=== PATIENT | female | born 1950 | race Caucasian/White ===

== ENCOUNTER 2018-02-09 23:57 | Observation (INO) | payer OTHER ==
[2018-02-10] MEDS ORDERED: PANTOPRAZOLE 40 MG INJ ONE (00:19)
[2018-02-10] MEDS ORDERED: NA CHLORIDE 0.9% 1,000 ML ONE (00:19)
[2018-02-10 00:36] LABS: Absolute Lymphocytes (CBC) 2.4 K/uL (0.7-4.9); Absolute Monocytes 0.7 K/uL (0.1-1.3); Absolute Neutrophil 5.7 K/uL (1.8-8.0); Basophils % 0.4 % (0-1.3); Eosinophils % 2.6 % (0-4.4); Hematocrit 42.8 % (36.0-45.0); Lymphocytes % 26.2 % (15.3-44.8); MCH 29.7 pg (27.0-35.0); MCV 86.4 fL (80-100); MPV 9.4 fL (7.6-11.3); Monocytes % 7.6 % (3.3-12.3); RBC Red Blood Cell Count 4.96 M/uL (3.86-4.86)
[2018-02-10] MEDS ORDERED: FENTANYL CITR 100 MCG/2 ML ONE ×2 (00:36→11:46)
[2018-02-10] MEDS ORDERED: ONDANSETRON 4 MG/2 ML VIAL ONE (00:36)
[2018-02-10] MEDS ORDERED: NA CHLORIDE 0.9% 500 ML ONE (00:36)
[2018-02-10 00:50] LABS: ALT/SGPT 64 U/L (12-78); AST/SGOT 53 U/L (15-37); Albumin 3.8 g/dL (3.4-5.0); Alkaline Phosphatase 81 U/L (45-117); BUN Blood Urea Nitrogen 16 mg/dL (7-18); Bicarbonate 23 mmol/L (21-32); Bilirubin Direct 0.3 mg/dL (0-0.2); Bilirubin Total 1.2 mg/dL (0.2-1.0); Glucose Level 160 mg/dL (74-106); Lipase 127 U/L (73-393); NT PRO-BNP 34 pg/mL (<125); Potassium 3.6 mmol/L (3.5-5.1); Protein, Total 7.6 g/dL (6.4-8.2); Protime INR 0.99; Sodium Level 140 mmol/L (136-145); Troponin (Emerg Dept Use Only) < 0.02 ng/mL (0.0-0.045)
[2018-02-10] MEDS ORDERED: Levofloxacin500mg IV 500 MG/100 ML BAG IV ONE (01:08)
--- NOTE | 2018-02-10 02:12 | EDPHYS ---
Physician Documentation [facility] Name: Vaishnavi Jose Age: 67 yrs Sex: Female : 1950 Arrival Date: 02/09/2018 Time: 23:58 Bed 16 Private MD: ED Physician Brett Rolle HPI: 02/10 00:27 This 67 yrs old Female presents to ER via Ambulatory with complaints of mami Epigastric Pain. 00:27 The patient presents with abdominal pain in the epigastric area, in the upper abdomen, mami abdominal distention in the epigastric area, in the upper abdomen. Onset: The symptoms/episode began/occurred 12 hour(s) ago. The symptoms radiate to Associated signs and symptoms: Pertinent positives: nausea and vomiting. The symptoms are described as constant, crampy, sharp. Modifying factors: The symptoms are alleviated by nothing, the symptoms are aggravated by breathing deeply, movement, pressure, touching the area, vomiting, walking. Severity of pain: At its worst the pain was moderate severe in the emergency department the pain is unchanged. The patient has not experienced similar symptoms in the past. Historical: - Allergies: 00:14 Codeine; bb 00:14 Latex, Natural Rubber; bb 00:14 Keflex; bb - Home Meds: 00:14 thyroid medication [Active]; Prevacid Oral [Active]; allergy medication [Active]; bb - PMHx: 00:14 GERD; bb - PSHx: 00:14 Thyroidectomy; neck surgery; bb - Immunization history:: Adult Immunizations up to date. - Social history:: Smoking status: Patient/guardian denies using tobacco, Patient uses alcohol, occasionally. Patient/guardian denies using street drugs. - Ebola Screening: : No symptoms or risks identified at this time. - Family history:: not pertinent. ROS: 00:27 Constitutional: Negative for fever, chills, and weight loss, Eyes: Negative for injury, mami pain, redness, and discharge, ENT: Negative for injury, pain, and discharge, Neck: Negative for injury, pain, and swelling, Cardiovascular: Negative for chest pain, palpitations, and edema, Respiratory: Negative for shortness of breath, cough, wheezing, and pleuritic chest pain, Back: Negative for injury and pain, : Negative for injury, bleeding, discharge, and swelling, MS/Extremity: Negative for injury and deformity, Skin: Negative for injury, rash, and discoloration, Neuro: Negative for headache, weakness, numbness, tingling, and seizure, Psych: Negative for depression, anxiety, suicide ideation, homicidal ideation, and hallucinations, Allergy/Immunology: Negative for hives, rash, and allergies, Endocrine: Negative for neck swelling, polydipsia, polyuria, polyphagia, and marked weight changes, Hematologic/Lymphatic: Negative for swollen nodes, abnormal bleeding, and unusual bruising. 00:27 Abdomen/GI: Positive for abdominal pain, nausea and vomiting, of the epigastric area, right upper quadrant and left upper quadrant. Exam: 00:27 Constitutional: This is a well developed, well nourished patient who is awake, alert, mami and in no acute distress. Head/Face: Normocephalic, atraumatic. Eyes: Pupils equal round and reactive to light, extra-ocular motions intact. Lids and lashes normal. Conjunctiva and sclera are non-icteric and not injected. Cornea within normal limits. Periorbital areas with no swelling, redness, or edema. ENT: Nares patent. No nasal discharge, no septal abnormalities noted. Tympanic membranes are normal and external auditory canals are clear. Oropharynx with no redness, swelling, or masses, exudates, or evidence of obstruction, uvula midline. Mucous membranes moist. Neck: Trachea midline, no thyromegaly or masses palpated, and no cervical lymphadenopathy. Supple, full range of motion without nuchal rigidity, or vertebral point tenderness. No Meningismus. Chest/axilla: Normal chest wall appearance and motion. Nontender with no deformity. No lesions are appreciated. Cardiovascular: Regular rate and rhythm with a normal S1 and S2. No gallops, murmurs, or rubs. Normal PMI, no JVD. No pulse deficits. Respiratory: Lungs have equal breath sounds bilaterally, clear to auscultation and percussion. No rales, rhonchi or wheezes noted. No increased work of breathing, no retractions or nasal flaring. Back: No spinal tenderness. No costovertebral tenderness. Full range of motion. Female : Normal external genitalia. Skin: Warm, dry with normal turgor. Normal color with no rashes, no lesions, and no evidence of cellulitis. MS/ Extremity: Pulses equal, no cyanosis. Neurovascular intact. Full, normal range of motion. Neuro: Awake and alert, GCS 15, oriented to person, place, time, and situation. Cranial nerves II-XII grossly intact. Motor strength 5/5 in all extremities. Sensory grossly intact. Cerebellar exam normal. Normal gait. Psych: Awake, alert, with orientation to person, place and time. Behavior, mood, and affect are within normal limits. 00:27 Abdomen/GI: Inspection: abdomen appears normal, Bowel sounds: normal, Palpation: moderate abdominal tenderness, in the epigastric area, right upper quadrant and left upper quadrant, Liver: no appreciated palpable abnormalities, Hernia: not appreciated. Vital Signs: 00:14 BP 146 / 71; Pulse 104; Resp 20 S; Temp 98.1(O); Pulse Ox 97% on R/A; Weight 75.3 kg bb (R); Height 5 ft. 2 in. (157.48 cm) (R); Pain 8/10; 00:34 BP 164 / 79; Pulse 101; Resp 20; Pulse Ox 96% on R/A; tl2 01:20 BP 152 / 81; Pulse 103; Resp 20; Pulse Ox 98% on R/A; tl2 02:45 BP 149 / 88; Pulse 107; Resp 20 S; Pulse Ox 97% on R/A; cc3 03:00 BP 149 / 72; Pulse 110; Resp 19 S; Pulse Ox 96% on R/A; Pain 0/10; cc3 04:30 BP 144 / 71; Pulse 114; Resp 21 S; Temp 98.5(O); Pulse Ox 97% on R/A; cc3 05:15 BP 144 / 62; Pulse 113; Resp 20 S; Pulse Ox 96% on R/A; cc3 07:20 BP 145 / 65; Pulse 110; Resp 18 S; Temp 98.4(O); Pulse Ox 96% on R/A; Pain 0/10; aa5 00:14 Body Mass Index 30.36 (75.30 kg, 157.48 cm) MDM: 00:04 Patient medically screened. [facility] 00:29 Data reviewed: vital signs, nurses notes, lab test result(s), EKG, radiologic studies, [facility] CT scan, plain films. 02/10 00:05 Order name: Basic Metabolic Panel; Complete Time: 00:57 [facility] 02/10 00:05 Order name: CBC with Diff; Complete Time: 00:57 [facility] 02/10 00:05 Order name: LFT's; Complete Time: 00:57 [facility] 02/10 00:05 Order name: Magnesium; Complete Time: 00:57 [facility] 02/10 00:05 Order name: NT PRO-BNP; Complete Time: 00:57 [facility] 02/10 00:05 Order name: PT-INR; Complete Time: 00:57 [facility] 02/10 00:05 Order name: Troponin (emerg Dept Use Only); Complete Time: 00:57 [facility] 02/10 00:05 Order name: XRAY Chest (1 view) [facility] 02/10 00:05 Order name: Lipase; Complete Time: 00:57 [facility] 02/10 00:05 Order name: Urine Culture [facility] 02/10 00:26 Order name: CT Abd/Pelvis - W/Contrast [facility] 02/10 00:59 Order name: Troponin (emerg Dept Use Only); Complete Time: 02:37 [facility] 02/10 02:15 Order name: Abdomen Exam Limited EDSD 02/10 02:38 Order name: Urine Dipstick--Ancillary (enter results) 02/10 00:05 Order name: EKG; Complete Time: 00:07 [facility] 02/10 00:05 Order name: Cardiac monitoring; Complete Time: 00:14 [facility] 02/10 00:05 Order name: EKG - Nurse/Tech; Complete Time: 00:14 [facility] 02/10 00:05 Order name: IV Saline Lock; Complete Time: 00:15 [facility] 02/10 00:05 Order name: Labs collected and sent; Complete Time: 00:15 [facility] 02/10 00:05 Order name: O2 Per Protocol; Complete Time: 00:15 [facility] 02/10 00:05 Order name: O2 Sat Monitoring; Complete Time: 00:15 [facility] 02/10 00:05 Order name: Urine Dipstick-Ancillary (obtain specimen); Complete Time: 02:38 [facility] 02/10 00:59 Order name: EKG; Complete Time: 01:00 [facility] 02/10 00:59 Order name: EKG - Nurse/Tech; Complete Time: 01:42 [facility] 02/10 00:59 Order name: Repeat Cardiac Enzymes at: 130am; Complete Time: 01:42 [facility] Administered Medications: 00:15 Drug: NS 0.9% 1000 ml Route: IV; Rate: 125 ml/hr; Site: right antecubital; cc3 03:00 Follow up: Response: No adverse reaction; IV Status: Infusion continued upon admission cc3 00:16 Drug: ProTONIX 40 mg Route: IVP; Site: right antecubital; cc3 01:00 Follow up: Response: No adverse reaction tl2 00:34 Drug: fentaNYL (PF) 25 mcg Route: IVP; Site: right antecubital; tl2 00:50 Follow up: Response: No adverse reaction; Pain is unchanged, physician notified tl2 00:34 Drug: Zofran 4 mg Route: IVP; Site: right antecubital; tl2 00:50 Follow up: Response: No adverse reaction; Nausea is decreased tl2 00:34 Drug: NS 0.9% 500 ml Route: IV; Rate: bolus; Site: right antecubital; tl2 01:43 Follow up: IV Status: Completed infusion; IV Intake: 500ml tl2 00:58 Drug: fentaNYL (PF) 25 mcg Route: IVP; Site: right antecubital; tl2 01:20 Follow up: Response: No adverse reaction; Pain is decreased tl2 01:05 Drug: levofloxacin 500 mg Volume: 100 ml; Route: IVPB; Infused Over: 60 mins; Site: tl2 right antecubital; 02:10 Follow up: Response: No adverse reaction; IV Status: Completed infusion; IV Intake: cc3 100ml Disposition: 18 02:11 Hospitalization ordered by Wallace Belcher for Observation. Preliminary diagnosis are Abdominal tenderness, Cholelithiasis. - Bed requested for Telemetry/MedSurg (observation). - Status is Observation. aa5 - Condition is Fair. - Problem is new. - Symptoms have improved. UTI on Admission? No Signatures: Dispatcher [employer] Nayana Jacob RN RN kl Anderson, Corey, MD MD cha Ballard, Brenda, RN RN bb Calderon, Audri, RN RN aa5 Maida Leyva RN RN tl2 Sarai Bird cc3 Corrections: (The following items were deleted from the chart) 02:42 02:11 Hospitalization Ordered by Wallace Belcher MD for Observation. Preliminary kl diagnosis is Abdominal tenderness. Bed requested for Telemetry/MedSurg (observation). Status is Observation. Condition is Fair. Problem is new. Symptoms have improved. UTI on Admission? No. mami 02:47 02:42 02/10/2018 02:11 Hospitalization Ordered by Wallace Belcher MD for Observation. mami Preliminary diagnosis is Abdominal tenderness. Bed requested for [facility] ER HOLD. Status is Observation. Condition is Fair. Problem is new. Symptoms have improved. UTI on Admission? No. kl 05:57 02:47 02/10/2018 02:11 Hospitalization Ordered by Wallace Belcher MD for Observation. kl Preliminary diagnosis is Abdominal tenderness; Cholelithiasis. Bed requested for [facility] ER HOLD. Status is Observation. Condition is Fair. Problem is new. Symptoms have improved. UTI on Admission? No. mami 07:53 05:57 02/10/2018 02:11 Hospitalization Ordered by Wallace Belcher MD for Observation. aa5 Preliminary diagnosis is Abdominal tenderness; Cholelithiasis. Bed requested for Telemetry/MedSurg (observation). Status is Observation. Condition is Fair. Problem is new. Symptoms have improved. UTI on Admission? No. kl
--- NOTE | 2018-02-10 02:12 | ER ---
Nurse's Notes [facility] Name: Vaishnavi Jose Age: 67 yrs Sex: Female : 1950 Arrival Date: 02/09/2018 Time: 23:58 Bed 16 Private MD: Diagnosis: Abdominal tenderness;Cholelithiasis Presentation: 02/10 00:11 Presenting complaint: Patient states: she has been having epigastric pain throughout bb the day but pain is worse and now she is vomiting and c/o SOB. Transition of care: patient was not received from another setting of care. Onset of symptoms was February 10, 2018. Risk Assessment: Do you want to hurt yourself or someone else? Patient reports no desire to harm self or others. Initial Sepsis Screen: Does the patient meet any 2 criteria? No. Patient's initial sepsis screen is negative. Does the patient have a suspected source of infection? No. Patient's initial sepsis screen is negative. Care prior to arrival: None. 00:11 Method Of Arrival: Ambulatory bb 00:11 Acuity: CLEVE 3 bb Historical: - Allergies: 00:14 Codeine; bb 00:14 Latex, Natural Rubber; bb 00:14 Keflex; bb - Home Meds: 00:14 thyroid medication [Active]; Prevacid Oral [Active]; allergy medication [Active]; bb - PMHx: 00:14 GERD; bb - PSHx: 00:14 Thyroidectomy; neck surgery; bb - Immunization history:: Adult Immunizations up to date. - Social history:: Smoking status: Patient/guardian denies using tobacco, Patient uses alcohol, occasionally. Patient/guardian denies using street drugs. - Ebola Screening: : No symptoms or risks identified at this time. - Family history:: not pertinent. Screenin:16 Abuse screen: Denies threats or abuse. Nutritional screening: No deficits noted. tl2 Tuberculosis screening: No symptoms or risk factors identified. Fall Risk None identified. Assessment: 00:16 General: Appears in no apparent distress. uncomfortable, Behavior is calm, cooperative, tl2 appropriate for age. Pain: Complains of pain in epigastric area, right upper quadrant and left upper quadrant Pain does not radiate. Pain currently is 10 out of 10 on a pain scale. Quality of pain is described as sharp. Neuro: Level of Consciousness is awake, alert, obeys commands, Oriented to person, place, time, situation. Cardiovascular: Denies chest pain. Respiratory: Airway is patent Respiratory effort is even, unlabored, Respiratory pattern is regular, symmetrical. GI: Abdomen is non-distended, Reports nausea, vomiting. : No signs and/or symptoms were reported regarding the genitourinary system. Derm: Skin is pink, warm \T\ dry. 01:20 Reassessment: Patient appears in no apparent distress at this time. Patient and/or tl2 family updated on plan of care and expected duration. Pain level reassessed. Patient is alert, oriented x 3, equal unlabored respirations, skin warm/dry/pink. Notified CT that pt finished contrast at 0100 Patient states feeling better. 01:40 Reassessment: Patient appears in no apparent distress at this time. Patient and/or cc3 family updated on plan of care and expected duration. Pain level reassessed. Patient is alert, oriented x 3, equal unlabored respirations, skin warm/dry/pink. Received patient from ANAI Bey as a case of epigastric pain, with IV cannula gauge 20 at the right ACV with ongoing IVF of a liter of NS at 125 mL/hr and intravenous Levofloxacin 500 mg over an hour infusing well. 02:30 Reassessment: Patient appears in no apparent distress at this time. Patient and/or cc3 family updated on plan of care and expected duration. Pain level reassessed. Patient is alert, oriented x 3, equal unlabored respirations, skin warm/dry/pink. Patient came back from CT scan department and CT abdomen/pelvis with contrast done as ordered, waiting for result. Called ultrasound department at extension [phone] but nobody answered. Patient states feeling better. 03:00 Reassessment: Patient appears in no apparent distress at this time. Patient and/or cc3 family updated on plan of care and expected duration. Pain level reassessed. Patient is alert, oriented x 3, equal unlabored respirations, skin warm/dry/pink. Patient is for admission, waiting for admission orders. Patient's placed on ER HOLD. Documentation continued in [employer] Patient denies pain at this time. Patient states feeling better. 06:25 Reassessment: Patient appears in no apparent distress at this time. Patient and/or cc3 family updated on plan of care and expected duration. Pain level reassessed. Patient is alert, oriented x 3, equal unlabored respirations, skin warm/dry/pink. Room available at 210, called med-surg villalba at [phone] but as per Paloma to give report after handover, charge nurse Rohini informed. 07:15 Reassessment: Patient and/or family updated on plan of care and expected duration. Pain aa5 level reassessed. Patient is alert, oriented x 3, equal unlabored respirations, skin warm/dry/pink. Patient denies pain at this time. 07:50 Reassessment: Patient is alert, oriented x 3, equal unlabored respirations, skin aa5 warm/dry/pink. Vital Signs: 00:14 BP 146 / 71; Pulse 104; Resp 20 S; Temp 98.1(O); Pulse Ox 97% on R/A; Weight 75.3 kg bb (R); Height 5 ft. 2 in. (157.48 cm) (R); Pain 8/10; 00:34 BP 164 / 79; Pulse 101; Resp 20; Pulse Ox 96% on R/A; tl2 01:20 BP 152 / 81; Pulse 103; Resp 20; Pulse Ox 98% on R/A; tl2 02:45 BP 149 / 88; Pulse 107; Resp 20 S; Pulse Ox 97% on R/A; cc3 03:00 BP 149 / 72; Pulse 110; Resp 19 S; Pulse Ox 96% on R/A; Pain 0/10; cc3 04:30 BP 144 / 71; Pulse 114; Resp 21 S; Temp 98.5(O); Pulse Ox 97% on R/A; cc3 05:15 BP 144 / 62; Pulse 113; Resp 20 S; Pulse Ox 96% on R/A; cc3 07:20 BP 145 / 65; Pulse 110; Resp 18 S; Temp 98.4(O); Pulse Ox 96% on R/A; Pain 0/10; aa5 00:14 Body Mass Index 30.36 (75.30 kg, 157.48 cm) ED Course: 02/09 23:58 Patient arrived in ED. mr 02/10 00:04 Brett Rolle MD is Attending Physician. [facility] 00:12 Triage completed. 00:14 Patient placed in an exam room, on a stretcher, on pulse oximetry. EKG completed in bb triage. Results shown to MD. 00:15 Inserted saline lock: 20 gauge in right antecubital area, using aseptic technique. tl2 Blood collected. 00:16 Initial lab(s) drawn, by me, sent to lab. EKG done. tl2 00:16 Patient has correct armband on for positive identification. Placed in gown. Bed in low tl2 position. Call light in reach. Side rails up X 1. 00:27 Maida Leyva RN is Primary Nurse. tl2 00:51 X-ray completed. Portable x-ray completed in exam room. Patient tolerated procedure kw well. 00:54 XRAY Chest (1 view) In Process Unspecified. EDMS 01:[address] via stretcher. co 02:10 Wallace Belcher MD is Hospitalizing Provider. [facility] 02:17 CT Abd/Pelvis - W/Contrast In Process Unspecified. EDMS 02:18 CT completed. Patient tolerated procedure well. Patient moved back from CT. co 03:00 No provider procedures requiring assistance completed. Patient admitted, IV remains in cc3 place. 07:05 Report received from ANAI Moon. aa5 07:07 Report given to ANAI Thompson. cc3 Administered Medications: 00:15 Drug: NS 0.9% 1000 ml Route: IV; Rate: 125 ml/hr; Site: right antecubital; cc3 03:00 Follow up: Response: No adverse reaction; IV Status: Infusion continued upon admission cc3 00:16 Drug: ProTONIX 40 mg Route: IVP; Site: right antecubital; cc3 01:00 Follow up: Response: No adverse reaction tl2 00:34 Drug: fentaNYL (PF) 25 mcg Route: IVP; Site: right antecubital; tl2 00:50 Follow up: Response: No adverse reaction; Pain is unchanged, physician notified tl2 00:34 Drug: Zofran 4 mg Route: IVP; Site: right antecubital; tl2 00:50 Follow up: Response: No adverse reaction; Nausea is decreased tl2 00:34 Drug: NS 0.9% 500 ml Route: IV; Rate: bolus; Site: right antecubital; tl2 01:43 Follow up: IV Status: Completed infusion; IV Intake: 500ml tl2 00:58 Drug: fentaNYL (PF) 25 mcg Route: IVP; Site: right antecubital; tl2 01:20 Follow up: Response: No adverse reaction; Pain is decreased tl2 01:05 Drug: levofloxacin 500 mg Volume: 100 ml; Route: IVPB; Infused Over: 60 mins; Site: tl2 right antecubital; 02:10 Follow up: Response: No adverse reaction; IV Status: Completed infusion; IV Intake: cc3 100ml Intake: 01:43 IV: 500ml; Total: 500ml. tl2 02:10 IV: 100ml; Total: 600ml. cc3 Outcome: 02:11 Decision to Hospitalize by Provider. [facility] 03:00 Condition: stable cc3 03:00 Instructed on the need for admit. 07:50 Admitted to Med/surg accompanied by tech, via wheelchair, room 210, with chart, Report aa5 called to ANAI Hooper. Pt was taken to [facility] and will be transported to Room 210 after it is completed. 07:50 Condition: stable 07:50 Instructed on the need for admit, Demonstrated understanding of instructions. 07:53 Patient left the ED. aa5 Signatures: Dispatcher [employer] EDMS Brett Rolle MD MD cha Rivera, Mary mr Rohini Mayes, RN RN bb Donna Mcrae RN RN aa5 Danuta Root Taylor, RN RN tl2 Gian Lee Charlene cc3 Corrections: (The following items were deleted from the chart) 03:13 01:40 Reassessment: Patient appears in no apparent distress at this time. Patient cc3 and/or family updated on plan of care and expected duration. Pain level reassessed. Patient is alert, oriented x 3, equal unlabored respirations, skin warm/dry/pink. Received patient from ANAI Bey as a case of epigastric pain, with IV cannula gauge 20 at the right ACV with ongoing IVF of NS at 125 mL/hr and cc3 03:18 02:30 Reassessment: Patient appears in no apparent distress at this time. Patient cc3 and/or family updated on plan of care and expected duration. Pain level reassessed. Patient is alert, oriented x 3, equal unlabored respirations, skin warm/dry/pink. Patient came back from CT scan department and CT abdomen/pelvis with contrast done as ordered, waiting for result. cc3 04:55 02:30 Reassessment: Patient appears in no apparent distress at this time. Patient cc3 and/or family updated on plan of care and expected duration. Pain level reassessed. Patient is alert, oriented x 3, equal unlabored respirations, skin warm/dry/pink. Patient came back from CT scan department and CT abdomen/pelvis with contrast done as ordered, waiting for result. Patient states feeling better. cc3
[2018-02-10 03:11] LABS: Urine Blood NEGATIVE (NEG); Urine Glucose NEGATIVE (NEG); Urine Protein NEGATIVE (NEG); Urine Specific Gravity 1.015 (1.005-1.030)
[2018-02-10 04:09] VITALS: BMI 30.3
--- NOTE | 2018-02-10 04:49 | P.HP ---
Certification for Inpatient Patient admitted to: Observation With expected LOS: <2 Midnights Practitioner: I am a practitioner with admitting privileges, knowledge of patient current condition, hospital course, and medical plan of care. Services: Services provided to patient in accordance with Admission requirements found in Title 42 Section 412.3 of the Code of Federal Regulations Patient History Date of Service: 02/10/18 Reason for admission: Abdominal pain History of Present Illness: Ms Jose is a 67-year-old woman with history of thyroid cancer, status post thyroidectomy, GERD, who start with epigastric abdominal pain since noon yesterday. Her pain was significantly intense about 10/10, radiating to right upper quadrant, associated with nausea and vomiting. The pain is described as constant colicky like. She denied diarrhea, fever but has had chills. She had these kind of symptoms in the past but resolved faster by itself. Lab work remarkable for normal WBC count, bilirubin 1.2, AST mildly elevated. CT abdomen and pelvis consistent with cholelithiasis. Allergies cephalexin monohydrate [From Keflex] Allergy (Intermediate, Verified 12/03/11 19 :36) UNKNOWN hydrocodone [Hydrocodone] Allergy (Intermediate, Verified 12/03/11 19:36) Itching Home medications list reviewed: Yes - Past Medical/Surgical History Has patient received pneumonia vaccine in the past: No Diabetic: No -: gerd -: history of thyroid cancer -: thyroidectomy -: thyroidectomy - Family History Family History: Reviewed- Non-Contributory - Social History Smoking Status: Former smoker Alcohol use: No CD- Drugs: No Caffeine use: No Place of Residence: Home Review of Systems 10-point ROS is otherwise unremarkable Physical Examination - Vital Signs Temperature: 98.5 F Blood Pressure: 139/60 Pulse: 117 Respirations: 20 Pulse Ox (%): 97 - Physical Exam General: Alert, In no apparent distress HEENT: Atraumatic, PERRLA, Mucous membr. moist/pink, EOMI, Sclerae nonicteric Neck: Supple, 2+ carotid pulse no bruit, No LAD, Without JVD or thyroid abnormality Respiratory: Clear to auscultation bilaterally, Normal air movement Cardiovascular: Regular rate/rhythm, Normal S1 S2 Gastrointestinal: Normal bowel sounds, Tenderness (Epigastric area) Musculoskeletal: No tenderness Integumentary: No rashes Neurological: Normal speech, Normal strength at 5/5 x4 extr, Normal tone, Normal affect Lymphatics: No axilla or inguinal lymphadenopathy - Studies Laboratory Data (last 24 hrs) 02/10/18 00:13: PT 11.7, INR 0.99 02/10/18 00:13: WBC 9.0, Hgb 14.7, Hct 42.8, Plt Count 238 02/10/18 00:13: Sodium 140, Potassium 3.6, BUN 16, Creatinine 0.90, Glucose 160 H, Magnesium 2.0, Total Bilirubin 1.2 H, AST 53 H, ALT 64, Alkaline Phosphatase 81, Lipase 127 Assessment and Plan - Problems (Diagnosis) (1) Abdominal pain Current Visit: Yes Status: Acute Qualifiers: Abdominal location: epigastric Qualified Code(s): R10.13 - Epigastric pain (2) Cholelithiasis Current Visit: Yes Status: Acute Qualifiers: Cholelithiasis location: gallbladder Cholecystitis presence: without cholecystitis Biliary obstruction: without biliary obstruction Qualified Code(s): K80.20 - Calculus of gallbladder without cholecystitis without obstruction (3) History of thyroid cancer Current Visit: Yes Status: Acute - Plan The patient will be admitted under observation due to symptomatic cholelithiasis. There is a pending abdominal ultrasound. Will order symptomatic medication for pain and N/V. Will consult Surgery team for evaluation and recommendation. - Advance Directives Does patient have a Living Will: No Does patient have a Durable POA for Healthcare: No - Code Status/Comfort Care Code Status Assessed: Yes Code Status: Full Code
[2018-02-10] MEDS ORDERED: KETOROLAC 30 MG/ML INJ IV PRN (05:12)
[2018-02-10] MEDS: NA CHLORIDE 0.9% 1,000 ML IV SCH ×2 (05:12→15:12)
[2018-02-10] MEDS ORDERED: SODIUM CHLORIDE 0.9% 10ML INJ IV PRN (05:12)
[2018-02-10] MEDS ORDERED: ONDANSETRON 4 MG/2 ML VIAL IV PRN ×2 (05:12→13:41)
[2018-02-10] MEDS: PANTOPRAZOLE 40 MG INJ IVP SCH (06:00)
--- NOTE | 2018-02-10 06:49 | EKG ---
Test Date: 2018-02-10 Test Time: 00:09:10 Power Nut Runner Operator: MARY CARMEN MEASUREMENT RESULTS: Intervals: Rate: 100 TN: 162 QRSD: 76 QT: 334 QTc: 430 [place]: P: 66 TN: 162 QRS: -4 T: 64 INTERPRETIVE STATEMENTS: Normal sinus rhythm Septal infarct, age undetermined Abnormal ECG Compared to ECG 07/19/2000 09:27:00 Myocardial infarct finding now present Electronically Signed On 02-10-18 06:49:00 CDT by Brandon Larson
--- NOTE | 2018-02-10 08:40 | RAD REPORT ---
EXAM DESCRIPTION: CT - Abdomen Pelvis W Contrast - 02/10/2018 2:17 am CLINICAL HISTORY: Abdominal pain. Epigastric pain with vomiting COMPARISON: None. TECHNIQUE: Computed axial tomography of the abdomen and pelvis was obtained. 100 cc Isovue-300 is ad ministered intravenously. Oral contrast was given. All CT scans are performed using dose optimization technique as appropriate and may include automated exposure control or mA/KV adjustment according to patient size. FINDINGS: Fatty infiltration liver seen. Multiple gallstones are noted. The gallbladder wall is not thickened. Spleen, pancreas, adrenals and kidneys appear unremarkable. Small left renal cyst is noted. An adnexal mass is not seen. Diverticula stem from the colon without evidence diverticulitis Small umbilical hernia is present. Small hiatal hernia is noted. Contrast within the distal esophagus probably indicates GE reflux IMPRESSION: Cholelithiasis
--- NOTE | 2018-02-10 08:41 | RAD REPORT ---
EXAM DESCRIPTION: US - Abdomen Exam Limited - 02/10/2018 7:10 am CLINICAL HISTORY: Abdominal pain. COMPARISON: CT February 10, 2018 FINDINGS: Multiple gallstones are present. The gallbladder wall is upper limits normal thickness The biliary tree is normal caliber. IMPRESSION: Cholelithiasis
--- NOTE | 2018-02-10 08:47 | RAD REPORT ---
EXAM DESCRIPTION: Luis Enrique Single View02/10/2018 12:53 am CLINICAL HISTORY: Chest pain COMPARISON: none FINDINGS: The lungs appear clear of acute infiltrate. The heart is normal size IMPRESSION: No acute abnormalities displayed
--- NOTE | 2018-02-10 09:26 | RAD REPORT ---
EXAM DESCRIPTION: [id number]/19/2018 8:33 am CLINICAL HISTORY: Abdominal pain COMPARISON: February 09, 2018 cat scan TECHNIQUE: Magnetic resonance cholangiogram was performed. 3D mip reconstruction performed FINDINGS: Multiple gallstones are present. The gallbladder wall appears borderline thickened The biliary tree is normal caliber. A filling defect within biliary tree is not seen IMPRESSION: Cholelithiasis. Gallbladder wall appears borderline thickened which may indicate cholecy stitis A stone within the common bile duct is not seen
[2018-02-10] MEDS ORDERED: Ringers Lactate 1,000 ML IV ONE (10:47)
--- NOTE | 2018-02-10 11:31 | P.PN ---
Subjective Date of Service: 02/10/18 Primary Care Provider: None Chief Complaint: Abdominal pain Subjective: Other (No more pain identified. No nausea vomiting.) Physical Examination - Vital Signs Temperature: 98.5 F Blood Pressure: 135/60 Pulse: 108 Respirations: 17 Pulse Ox (%): 94 - Physical Exam General: Alert, In no apparent distress, Oriented x3, Cooperative HEENT: Atraumatic Neck: Supple Respiratory: Clear to auscultation bilaterally, Normal air movement Cardiovascular: Normal pulses, Regular rate/rhythm Gastrointestinal: Normal bowel sounds, Soft and benign, Non-distended, No tenderness, No masses, No rebound, No guarding Musculoskeletal: No erythema, No tenderness, No warmth Integumentary: No tenderness/swelling, No erythema, No warmth, No cyanosis Neurological: Normal speech, Normal strength at 5/5 x4 extr, Normal tone, Normal affect - Studies Laboratory Data (last 24 hrs) 02/10/18 00:13: PT 11.7, INR 0.99 02/10/18 00:13: WBC 9.0, Hgb 14.7, Hct 42.8, Plt Count 238 02/10/18 00:13: Sodium 140, Potassium 3.6, BUN 16, Creatinine 0.90, Glucose 160 H, Magnesium 2.0, Total Bilirubin 1.2 H, AST 53 H, ALT 64, Alkaline Phosphatase 81, Lipase 127 Medications List Reviewed: Yes Assessment & Plan Discharge Plan: Home Plan to discharge in: 24 Hours Physician Review Additional Text: Impression: Right upper quadrant abdominal pain secondary to acute cholecystitis with cholelithiasis. MRCP shows no stone in the bile duct. Elevation in liver function tests with hyperbilirubinemia secondary to acute cholecystitis. MRCP unremarkable for stone in the biliary duct History of thyroid cancer Obesity, BMI 30.4 Plan: Right upper quadrant abdominal pain secondary to acute cholecystitis with cholelithiasis. MRCP shows no stone in the bile duct: GI consulted. No need for a ERCP. Surgery consulted. Anticipate cholecystectomy today. Possible discharge later today or tomorrow. Will discuss further with surgery. Elevation in liver function tests with hyperbilirubinemia secondary to acute cholecystitis. MRCP unremarkable for stone in the biliary duct: No need for ERCP. Continue as above. History of thyroid cancer: Overall stable. Obesity, BMI 30.4: Will address lifestyle modification education. Time Spent Managing Pts Care (In Minutes): 55
[2018-02-10] MEDS ORDERED: CEFOXITIN SODIUM 1 GM/VIAL IVPB ONE (11:40)
[2018-02-10] MEDS ORDERED: PROPOFOL 200 MG/20 ML VIAL IV ONE (11:46)
[2018-02-10] MEDS ORDERED: MIDAZOLAM HCL 2 MG/2 ML INJ ONE (11:46)
[2018-02-10] MEDS ORDERED: LIDOCAINE 2% MPF 5 ML VIAL ONE (11:46)
[2018-02-10] MEDS ORDERED: ROCURONIUM 50 MG/5 ML VIAL IV ONE (11:47)
[2018-02-10] MEDS ORDERED: ONDANSETRON HCL 40 MG/20 ML VIAL ONE (11:47)
[2018-02-10] MEDS ORDERED: NS 0.9% VIAL 10 ML ONE (11:55)
[2018-02-10] MEDS ORDERED: CEFOXITIN/SWI 1gm 1 GM/10 ML SYR IV SCH (12:00)
--- NOTE | 2018-02-10 13:01 | P.OP ---
Preoperative diagnosis: Acute Cholecystitis and Cholelithiasis Postoperative diagnosis: same Primary procedure: Lap Abigail Anesthesia: gen Estimated blood loss: min Specimen: gb Findings: as above Complications: None Transferred to: Recovery Room Condition: Good
[2018-02-10] MEDS ORDERED: GLYCOPYRROLATE 0.2 MG/ML SYR ONE (13:02)
[2018-02-10] MEDS: MEPERIDINE HCL 50 MG/ML AMP ONE ×2 (13:32→13:40)
[2018-02-10] MEDS ORDERED: PROMETHAZINE 25 MG/ML VIAL ONE (13:40)
[2018-02-10] MEDS ORDERED: HYDROMORPHONE HCL 1 MG/ML INJ IV PRN ×2 (13:41)
[2018-02-10 14:31] VITALS: O2SAT 96
[2018-02-10] MEDS: HYDROCODONE/APAP 7.5/325 MG TAB PO PRN ×2 (15:58→21:20)
[2018-02-10] MEDS: CEFOXITIN/SWI 1gm 1 GM/10 ML SYR IVP SCH (17:45)
--- NOTE | 2018-02-10 18:22 | CON ---
Date of Consultation: 02/10/2018 Reason: Abdominal pain. History Of Present Illness: The patient is a 67-year-old female, who was admitted early this morning with epigastric abdominal pain since she had lunch yesterday, radiating to the right upper quadrant associated with nausea and vomiting. The pain is colicky in nature. She denies any diarrhea, consti pation, or blood in her stool. No dysuria or hematuria. No sore throat, runny nose, cough, headache s, or dizziness. No chest pain. No fever, but occasional chills. She had a similar symptoms 1 time in the past. Review of Systems: Otherwise unremarkable. Past Medical History: Significant for GERD, thyroid cancer. Past Surgical History: Thyroidectomy. Allergies: INCLUDE CEPHALEXIN AND HYDROCODONE. Social History: The patient used to smoke, does not. Family History: Noncontributory. Physical Examination: Vital Signs: Stable. She is afebrile. General: She is awake, alert, and oriented x3. Head and Neck: No evidence of icterus. Cranial nerves 2 through 12 grossly within normal limits. N o neck masses. No JVD. Throat clear. Neck is supple. Chest: Clear. Heart: S1, S2. Abdomen: Soft, nondistended. Positive bowel sounds. Positive right upper quadrant tenderness. No rebound, rigidity, or guarding. Extremities: Adequately perfused. Nontender. Neuro: Nonfocal. Laboratory Data: Shows a white count of 9000. There is no left shift. INR was normal. Chemistry s hows total bilirubin of 1.2, AST of 53, lipase of 127. She had an ultrasound of the abdomen and CAT scan of the abdomen and pelvis, which shows cholelithiasis, but normal biliary duct. The MRCP which was negative for stone in the duct and then the CAT scan, which just showed cholelithiasis. Assessment: Acute cholecystitis and cholelithiasis. Plan: Admit n.p.o., IV fluid, IV antibiotic. To the OR for laparoscopic cholecystectomy, possible o pen. The patient understands the risks, benefits, and alternatives and agrees to procedure. /MODL Voice ID: [id number] Report ID: [id number]
[2018-02-11] MEDS: CEFOXITIN/SWI 1gm 1 GM/10 ML SYR IVP SCH ×3 (00:13→11:21)
[2018-02-11] MEDS: NA CHLORIDE 0.9% 1,000 ML IV SCH (00:13)
--- NOTE | 2018-02-11 00:58 | OP ---
Date of Procedure: 02/10/2018 Surgeon: Brad Edgar MD Preoperative Diagnosis: Acute cholecystitis and cholelithiasis. Postoperative Diagnosis: Acute cholecystitis and cholelithiasis. Operative Procedure: Laparoscopic cholecystectomy. Estimated Blood Loss: Minimal. Specimen: Gallbladder. Findings: As above. Anesthesia: General. Complications: None. Disposition: The patient tolerated the procedure in stable condition and taken to Recovery in good g eneral condition. Procedure In Detail: The patient was brought to the OR and placed in the supine position. General a nesthesia was begun. The patient was prepped and draped in the usual sterile fashion. Marcaine 0.5% was infiltrated locally. A 15-blade was used to make a 1 cm infraumbilical midline incision. Subcu taneous tissue divided. The fascia was identified and divided. A #1 Vicryl stay suture was placed. Peritoneal cavity was entered with sharp and blunt dissection. A 12 mm trocar was placed into the p eritoneal cavity under direct vision. Pneumoperitoneum was established and then three 5-mm trocars w ere placed, 1 in the epigastrium just to the right of midline and 2 in the right subcostal region. L aparoscopy revealed a very distended inflamed gallbladder, which was aspirated of bile and then fundu s was retracted superiorly. There were some adhesions near the infundibulum which was taken down wit h sharp and blunt dissection. Bleeding controlled with cautery and then cystic duct and cystic arter y were clearly identified with blunt dissection. Clips were placed. Both structures were divided. Cautery was used to remove the gallbladder from the liver bed. Bleeding in the gallbladder controlle d with cautery and then gallbladder retrieved through the umbilicus via an EndoCatch bag. Right uppe r quadrant was irrigated. Effluent was clear. No evidence of bleeding or bile leakage appreciated. Minimal oozing noted on the liver bed. Surgicel was placed. No further bleeding noted. Subsequent ly, all trocars were removed under direct vision. Stay sutures were tied to each other to reapproxim ate the fascial defect. Subcutaneous wounds were irrigated. Bleeding was controlled with cautery. A 3-0 chromic was used to approximate the subcutaneous tissue and diamond were used to close the skin . Sterile dressing was applied. The patient was awakened and taken to recovery room in good general condition. /MODL Voice ID: [id number] Report ID: [id number]
[2018-02-11] MEDS: HYDROCODONE/APAP 7.5/325 MG TAB PO PRN ×2 (04:05→11:21)
--- NOTE | 2018-02-11 04:20 | EKG ---
Test Date: 2018-02-10 Test Time: 01:38:05 Assistant Womens Volleyball Coach: ELLIE MEASUREMENT RESULTS: Intervals: Rate: 103 NH: 170 QRSD: 80 QT: 340 QTc: 445 [place]: P: 52 NH: 170 QRS: -6 T: 57 INTERPRETIVE STATEMENTS: Sinus tachycardia Septal infarct, age undetermined Abnormal ECG Compared to ECG 02/10/2018 00:09:10 Sinus rhythm no longer present Myocardial infarct finding still present Electronically Signed On 02-11-18 04:17:32 CDT by Brandon Larson
[2018-02-11] MEDS: PANTOPRAZOLE 40 MG INJ IVP SCH (05:27)
[2018-02-11 06:23] LABS: Absolute Lymphocytes (CBC) 1.7 K/uL (0.7-4.9); Absolute Neutrophil 7.5 K/uL (1.8-8.0); Basophils % 0.4 % (0-1.3); Eosinophils % 0.8 % (0-4.4); Hematocrit 39.1 % (36.0-45.0); Lymphocytes % 16.9 % (15.3-44.8); MCH 30.4 pg (27.0-35.0); MPV 9.6 fL (7.6-11.3); Monocytes % 9.2 % (3.3-12.3); RBC Red Blood Cell Count 4.49 M/uL (3.86-4.86)
[2018-02-11 06:40] LABS: Albumin 3.3 g/dL (3.4-5.0); Bilirubin Total 2.6 mg/dL (0.2-1.0); Potassium 3.3 mmol/L (3.5-5.1); Protein, Total 6.8 g/dL (6.4-8.2)
[2018-02-11] MEDS ORDERED: NA CHLORIDE 0.9% 1,000 ML IV ONE (09:07)
--- NOTE | 2018-02-11 09:14 | P.PN ---
Subjective Date of Service: 02/11/18 Primary Care Provider: None Chief Complaint: Abdominal pain Subjective: Other (Patient feeling better. Status post cholecystectomy. Patient tolerating diet.) Physical Examination - Vital Signs Temperature: 98.0 F Blood Pressure: 119/56 Pulse: 98 Respirations: 18 Pulse Ox (%): 95 - Physical Exam General: Alert, In no apparent distress, Oriented x3, Cooperative HEENT: Atraumatic Neck: Supple Respiratory: Clear to auscultation bilaterally, Normal air movement Cardiovascular: Normal pulses, Regular rate/rhythm Gastrointestinal: Normal bowel sounds, Soft and benign, Non-distended, No tenderness, No masses, No rebound, No guarding, Other (Postop changes noted) Musculoskeletal: No erythema, No tenderness, No warmth Integumentary: No tenderness/swelling, No erythema, No warmth, No cyanosis Neurological: Normal speech, Normal strength at 5/5 x4 extr, Normal tone, Normal affect - Studies Medications List Reviewed: Yes Assessment & Plan Discharge Plan: Home Plan to discharge in: 24 Hours Physician Review Additional Text: Impression: Right upper quadrant abdominal pain secondary to acute cholecystitis with cholelithiasis. MRCP shows no stone in the bile duct. Status post cholecystectomy Elevation in liver function tests with hyperbilirubinemia secondary to acute cholecystitis. MRCP unremarkable for stone in the biliary duct, status post cholecystectomy Acute renal insufficiency likely dehydration Post operative hypothyroidism with History of thyroid cancer GERD Obesity, BMI 30.4 Plan: Right upper quadrant abdominal pain secondary to acute cholecystitis with cholelithiasis. MRCP shows no stone in the bile duct. Status post cholecystectomy: Patient status post cholecystectomy. Diet will be advanced. Patient will be given IV fluids this morning. Recheck lab around noontime. Will reassess if improved patient can be discharged home. Case discussed with surgery who agrees. Patient will require pain medication at discharge provided by surgery. Patient will require postop care education and follow up with surgery. Elevation in liver function tests with hyperbilirubinemia secondary to acute cholecystitis. MRCP unremarkable for stone in the biliary duct, status post cholecystectomy: No need for ERCP. Continue as above. Post operative hypothyroidism with History of thyroid cancer: Overall stable. Will continue with her medication Acute renal insufficiency likely dehydration: Will provide IV fluid bolus and continue IV fluids. Will recheck lab around 12 o'clock. Will reassess if stable patient can be discharged home. GERD: Will continue with medication Obesity, BMI 30.4: Will address lifestyle modification education. Time Spent Managing Pts Care (In Minutes): 55
[2018-02-11] MEDS ORDERED: NA CHLORIDE 0.9% 1,000 ML IV SCH (10:00)
--- NOTE | 2018-02-11 11:11 | P.DS ---
Admission Date: 02/10/18 Discharge Date: 02/11/18 Primary Care Provider: None Disposition: ROUTINE DISCHARGE Discharge Condition: GOOD Reason for Admission: Abdominal pain Consultations: Surgery-Dr. Edgar GI-Dr. Lozada Procedures: Abdominal ultrasound: COMPARISON: CT February 10, 2018 FINDINGS: Multiple gallstones are present. The gallbladder wall is upper limits normal thickness The biliary tree is normal caliber. IMPRESSION: Cholelithiasis CT scan: COMPARISON: None. TECHNIQUE: Computed axial tomography of the abdomen and pelvis was obtained. 100 cc Isovue-300 is administered intravenously. Oral contrast was given. All CT scans are performed using dose optimization technique as appropriate and may include automated exposure control or mA/KV adjustment according to patient size. FINDINGS: Fatty infiltration liver seen. Multiple gallstones are noted. The gallbladder wall is not thickened. Spleen, pancreas, adrenals and kidneys appear unremarkable. Small left renal cyst is noted. An adnexal mass is not seen. Diverticula stem from the colon without evidence diverticulitis Small umbilical hernia is present. Small hiatal hernia is noted. Contrast within the distal esophagus probably indicates GE reflux IMPRESSION: Cholelithiasis MRCP: COMPARISON: February 09, 2018 cat scan TECHNIQUE: Magnetic resonance cholangiogram was performed. 3D mip reconstruction performed FINDINGS: Multiple gallstones are present. The gallbladder wall appears borderline thickened The biliary tree is normal caliber. A filling defect within biliary tree is not seen IMPRESSION: Cholelithiasis. Gallbladder wall appears borderline thickened which may indicate cholecystitis A stone within the common bile duct is not seen Surgery: Date of Procedure: 02/10/2018 Surgeon: Brad Edgar MD Preoperative Diagnosis: Acute cholecystitis and cholelithiasis. Postoperative Diagnosis: Acute cholecystitis and cholelithiasis. Operative Procedure: Laparoscopic cholecystectomy. Estimated Blood Loss: Minimal. Specimen: Gallbladder. Findings: As above. Anesthesia: General. Complications: None. Medical problem list: Right upper quadrant abdominal pain secondary to acute cholecystitis with cholelithiasis. MRCP shows no stone in the bile duct. Status post cholecystectomy Elevation in liver function tests with hyperbilirubinemia secondary to acute cholecystitis. MRCP unremarkable for stone in the biliary duct, status post cholecystectomy Acute renal insufficiency likely dehydration Post operative hypothyroidism with History of thyroid cancer GERD Obesity, BMI 30.4 Brief History of Present Illness: 67-year-old female presented with abdominal pain. Patient found to have cholelithiasis with cholecystitis. Patient admitted for further evaluation. Hospital Course: Patient presented with right upper quadrant abdominal pain secondary to acute cholecystitis with cholelithiasis. MRCP showed no stone in the bile duct. GI and surgery were consulted. Surgery proceeded with laparoscopic cholecystectomy. Patient tolerated procedure well. At discharge she is without any significant pain. She is tolerating her diet. Patient will be discharged home. She will continue with postoperative care. Patient will follow up with surgery within 1 week. No heavy lifting, pushing or pulling. Patient will be provided a limited supply of pain medication by surgery. Patient had elevation in liver function tests with hyperbilirubinemia secondary to acute cholecystitis. MRCP unremarkable. Recommendation to recheck lab-CMP and bilirubin in 1-2 weeks to monitor resolution. Patient with acute renal insufficiency likely from dehydration. Patient given IV fluids. Repeat lab shows improvement. Patient encouraged to increase fluid intake at home. Recommendation to recheck lab-BMP in 1 week to monitor her progress and resolution. Patient with history of post operative hypothyroidism with history of thyroid cancer. Patient will continue with her medication-Synthroid 125 mcg daily. This can be further monitored and addressed by her PCP. Patient likely with GERD. Patient will continue with Pepcid 20 mg daily. Patient may follow up with GI as an outpatient to further address. Lifestyle modification education will be provided. Vital Signs/Physical Exam: Temp Pulse Resp BP Pulse Ox 98.0 F 98 H 18 119/56 L 95 02/11/18 09:13 02/11/18 09:13 02/11/18 09:13 02/11/18 09:13 02/11/18 09:13 General: Alert, In no apparent distress, Oriented x3, Cooperative HEENT: Atraumatic Neck: Supple Respiratory: Clear to auscultation bilaterally, Normal air movement Cardiovascular: Normal pulses, Regular rate/rhythm Gastrointestinal: Normal bowel sounds, Soft and benign, Non-distended, No tenderness, No masses, No rebound, No guarding Musculoskeletal: No erythema, No tenderness, No warmth Integumentary: No tenderness/swelling, No erythema, No warmth, No cyanosis Neurological: Normal speech, Normal strength at 5/5 x4 extr, Normal tone, Normal affect Laboratory Data at Discharge: WBC 10.3 K/uL (4.3-10.9) D 02/11/18 05:59 Hgb 13.6 g/dL (12.0-15.0) 02/11/18 05:59 Hct 39.1 % (36.0-45.0) 02/11/18 05:59 Plt Count 224 K/uL (152-406) 02/11/18 05:59 PT 11.7 SECONDS (9.5-12.5) 02/10/18 00:13 INR 0.99 02/10/18 00:13 Sodium 136 mmol/L (136-145) 02/11/18 05:59 Potassium 3.3 mmol/L (3.5-5.1) L 02/11/18 05:59 BUN 11 mg/dL (7-18) 02/11/18 05:59 Creatinine 1.40 mg/dL (0.55-1.3) H 02/11/18 05:59 Glucose 130 mg/dL (74-106) H 02/11/18 05:59 Magnesium 2.0 mg/dL (1.8-2.4) 02/10/18 00:13 Total Bilirubin 2.6 mg/dL (0.2-1.0) H 02/11/18 05:59 AST 109 U/L (15-37) H 02/11/18 05:59 ALT 84 U/L (12-78) H 02/11/18 05:59 Alkaline Phosphatase 68 U/L (45-117) 02/11/18 05:59 Lipase 127 U/L (73-393) 02/10/18 00:13 Home Medications: Famotidine [Pepcid*] 20 mg PO DAILY 02/10/18 Levothyroxine [Synthroid*] 125 mcg PO [id number] 02/10/18 Patient Discharge Instructions: 1. Patient will need to follow up with a PCP in 1 week to follow up this hospitalization. 2. Patient presented with right upper quadrant abdominal pain secondary to acute cholecystitis with cholelithiasis. MRCP showed no stone in the bile duct. GI and surgery were consulted. Surgery proceeded with laparoscopic cholecystectomy. Patient tolerated procedure well. At discharge she is without any significant pain. She is tolerating her diet. Patient will be discharged home. She will continue with postoperative care. Patient may shower tomorrow morning. She is to keep postop area dry and clean. Patient will follow up with surgery within 1 week. No heavy lifting, pushing or pulling. Patient will be provided a limited supply of pain medication by surgery. 3. Patient had elevation in liver function tests with hyperbilirubinemia secondary to acute cholecystitis. MRCP unremarkable. Recommendation to recheck lab-CMP and bilirubin in 1-2 weeks to monitor resolution. 4. Patient with acute renal insufficiency likely from dehydration. Patient given IV fluids. Repeat lab shows improvement. Patient encouraged to increase fluid intake at home. Recommendation to recheck lab-BMP in 1 week to monitor her progress and resolution. 5. Patient with history of post operative hypothyroidism with history of thyroid cancer. Patient will continue with her medication-Synthroid 125 mcg daily. This can be further monitored and addressed by her PCP. 6. Patient likely with GERD. Patient will continue with Pepcid 20 mg daily. Patient may follow up with GI as an outpatient to further address. 7. Lifestyle modification education will be provided. Diet: AHA Activity: No lifting more than 10 lbs Followup: Brad Edgar MD [ACTIVE - CAN ADMIT] - 1 Week Time spent managing pt's care (in minutes): 55
--- NOTE | 2018-02-11 11:43 | PN ---
Date of Progress Note: 02/11/2018 Subjective: The patient is awake, alert, tolerating diet, ambulating, pain controlled on p.o. pain m edication and afebrile. Her electrolytes reveal. She is still dehydrated. Her H and H are stable. Abdomen is benign. Assessment: Status post laparoscopic cholecystectomy. Recommendation: Dr. Clark is going to hydrate her with a liter of fluid. Recheck her electrolytes and should they improve the patient will be cleared for discharge. She could follow up with me in my office in a week. Discharge instructions given. JACLYN/HENNY Voice ID: [id number] Report ID: [id number]
[2018-02-11 12:16] LABS: Potassium 3.7 mmol/L (3.5-5.1)
[2018-02-11 13:04] VITALS: BP 134/63; TEMP 98.1
[2018-02-12] MEDS ORDERED: LEVOTHYROXINE SOD 0.125 MG TAB PO SCH (06:00)
[2018-02-12] MEDS ORDERED: FAMOTIDINE 20 MG TAB PO SCH (09:00)
== END 2018-02-11 14:34 | disposition home or self-care (01) ==
LOC: ER 23:57 → ERHOLD 02-10 02:12 → 2ND 02-10 07:47
PROVIDERS: ADMIT Internal Medicine; ATTEND Internal Medicine
PROC: 0FT44ZZ Resection of Gallbladder, Percutaneous Endoscopic Approach (ICD-10-PCS; principal; 2018-02-10 10:45)
DX: K80.00 Calculus of gallbladder with acute cholecystitis without obstruction (principal); N28.9 Disorder of kidney and ureter, unspecified; E89.0 Postprocedural hypothyroidism; K21.9 Gastro-esophageal reflux disease without esophagitis; E66.9 Obesity, unspecified; Z68.30 Body mass index [BMI] 30.0-30.9, adult; Z85.850 Personal history of malignant neoplasm of thyroid
CPT/HCPCS: 36415 ×2; 47562; 71045; 74177; 74181; 76705; 80048 ×2; 80053; 80076; 81003; 83690; 83735; 83880; 84484 ×2; 85025 ×2; 85610; 87086; 87088; 88304; 93005 ×2; 96361; 96365; 96375; 99285; C9113 ×2; J2175; J2250; J2405 ×2; J2550; J3010 ×2; J7030 ×5; Q9967; J1170

== ENCOUNTER 2020-02-26 10:09 | Emergency (ER) | payer OTHER ==
--- NOTE | 2020-02-26 11:19 | RAD REPORT ---
EXAM DESCRIPTION: CT - Head Brain Wo Cont - 02/26/2020 10:51 am CLINICAL HISTORY: Dizziness COMPARISON: None. TECHNIQUE: Computed axial tomography of the head was obtained. IV contrast was not requested. All CT scans are performed using dose optimization technique as appropriate and may include automated exposure control or mA/KV adjustment according to patient size. FINDINGS: An intracranial bleed is not seen . The ventricles are normal in caliber. No extra-axial fluid collection is noted. Fluid within the sinuses/ mastoids is not seen. IMPRESSION: No acute intracranial abnormality is seen. If patient's symptoms persist MRI of the bra in would be recommended.
[2020-02-26 11:29] LABS: Absolute Lymphocytes (CBC) 1.1 K/uL (0.7-4.9); Basophils % 0.5 % (0-1.3); Hematocrit 41.6 % (36.0-45.0); Lymphocytes % 19.4 % (15.3-44.8); MPV 9.4 fL (7.6-11.3); RBC Red Blood Cell Count 4.79 M/uL (3.86-4.86)
[2020-02-26] MEDS ORDERED: NA CHLORIDE 0.9% 1,000 ML ONE (11:32)
[2020-02-26] MEDS ORDERED: NA CHLORIDE 0.9% 500 ML ONE (11:32)
[2020-02-26] MEDS ORDERED: MECLIZINE HCL 12.5 MG TAB ONE (11:32)
[2020-02-26 11:46] LABS: BUN Blood Urea Nitrogen 14 mg/dL (7-18); Bicarbonate 27 mmol/L (21-32); Glucose Level 134 mg/dL (74-106); Potassium 3.7 mmol/L (3.5-5.1); Sodium Level 140 mmol/L (136-145); Troponin (Emerg Dept Use Only) < 0.02 ng/mL (0.0-0.045)
[2020-02-26] MEDS ORDERED: ONDANSETRON 4 MG/2 ML VIAL ONE (12:41)
[2020-02-26 12:54] LABS: Urine Blood NEGATIVE (NEG); Urine Glucose NEGATIVE (NEG); Urine Protein NEGATIVE (NEG); Urine Specific Gravity 1.015 (1.005-1.030)
[2020-02-26 13:07] LABS: Urine Bacteria 20-50 /HPF (<20); Urine RBC <5 /HPF (NONE SEEN)
[2020-02-26 13:08] LABS: Urine Culture Reflex Order REFLEXED
--- NOTE | 2020-02-26 13:30 | RAD REPORT ---
EXAM DESCRIPTION: MRI - Brain Wo Cont - 02/26/2020 1:03 pm CLINICAL HISTORY: Dizziness COMPARISON: February 26, [address] TECHNIQUE: Axial, sagittal, and coronal magnetic images of the brain were obtained. Contrast was not requested FINDINGS: No significant abnormal signal is present within the brain. Diffusion-weighted/ADC mapping does not reveal evidence of acute infarction. The ventricles are normal caliber. An extra-axial fluid collection is not present Fluid within the sinuses/mastoids is not noted IMPRESSION: No acute abnormality is displayed
--- NOTE | 2020-02-26 13:45 | ER ---
Nurse's Notes [facility] Name: Vaishnavi Jose Age: 69 yrs Sex: Female : 1950 Arrival Date: 02/26/2020 Time: 10:13 Bed 2 Private MD: Diagnosis: Vertigo Presentation: 02/25 10:25 Chief complaint: Patient states: Vertigo since . States it was minor the first ll1 three days. States the dizziness woke her out of her sleep last night. + nausea. Slight dizziness still. Noticed left eye seems blurry. Coronavirus screen: Client denies travel out of the [place] in the last 14 days. At this time, the client does not indicate any symptoms associated with coronavirus-19. Ebola Screen: Patient denies travel to an Ebola-affected area in the 21 days before illness onset. Initial Sepsis Screen: Does the patient meet any 2 criteria? HR > 90 bpm. No. Patient's initial sepsis screen is negative. Does the patient have a suspected source of infection? No. Patient's initial sepsis screen is negative. Risk Assessment: Do you want to hurt yourself or someone else? Patient reports no desire to harm self or others. Onset of symptoms was February 22, 2020. 10:25 Method Of Arrival: Wheelchair ll1 10:25 Acuity: CLEVE 2 ll1 Historical: - Allergies: 10:28 Codeine; ll1 10:28 Keflex; ll1 10:28 Latex, Natural Rubber; ll1 - Home Meds: 13:45 THYROID MEDICATION [Active]; Prevacid Oral [Active]; ALLERGY MEDICATION [Active]; tw2 - PMHx: 10:28 GERD; Thyroid problem; ll1 - PSHx: 10:28 Thyroidectomy; neck surgery; Cholecystectomy; ll1 - Immunization history:: Flu vaccine is not up to date. - Social history:: Smoking status: Patient/guardian denies using tobacco, the patient reports quitting approximately 40 years ago. - Family history:: not pertinent. - Hospitalizations: : No recent hospitalization is reported. Screenin:28 Abuse screen: Denies threats or abuse. Nutritional screening: No deficits noted. tw2 Tuberculosis screening: No symptoms or risk factors identified. Fall Risk Secondary diagnosis (15 points) impaired mobility. Assessment: 10:28 General: Appears in no apparent distress. obese, well groomed, Behavior is calm, tw2 cooperative, appropriate for age. Pain: Denies pain. Neuro: Level of Consciousness is awake, alert, obeys commands, Oriented to person, place, time, situation, Reports dizziness, since , pt states " when i move i get nauseous, but not now. i dont have a primary care doctor either so i didn't know what to take for the vertigo". Cardiovascular: Heart tones S1 S2 Patient's skin is warm and dry. Respiratory: Airway is patent Respiratory effort is even, unlabored, Respiratory pattern is regular, agonal Breath sounds are clear bilaterally. GI: Abdomen is round non-distended, obese, Bowel sounds present X 4 quads. : No signs and/or symptoms were reported regarding the genitourinary system. EENT: No signs and/or symptoms were reported regarding the EENT system. Derm: No signs and/or symptoms reported regarding the dermatologic system. Musculoskeletal: Range of motion: intact in all extremities. 10:55 Reassessment: Dr Cruz at the bedside. sv 11:25 Reassessment: Patient appears in no apparent distress at this time. No changes from tw2 previously documented assessment. Patient and/or family updated on plan of care and expected duration. Pain level reassessed. Patient is alert, oriented x 3, equal unlabored respirations, skin warm/dry/pink. 12:10 Reassessment: Patient is alert, oriented x 3, equal unlabored respirations, skin aa5 warm/dry/pink. Pt assisted with bedside commode, pt voided without difficulty. Pt assisted back to bed, bed in low position, side rails x 2, call verdugo within reach. Pt was noted to be unsteady and pt reported increased dizziness upon change in position. . 12:28 Reassessment: Patient and/or family updated on plan of care and expected duration. Pain tw2 level reassessed. Patient is alert, oriented x 3, equal unlabored respirations, skin warm/dry/pink. pt dry heaving at this time, medicated as ordered. 12:32 Reassessment: pt transported to MRI via w/c at this time. tw2 13:07 Reassessment: pt not available for VS at this time, still in MRI. tw2 13:15 Reassessment: Patient and/or family updated on plan of care and expected duration. Pain tw2 level reassessed. Patient is alert, oriented x 3, equal unlabored respirations, skin warm/dry/pink. pt back from MRI at this time, states "nauseousness is better but still dizzy", provider notified. 13:41 Reassessment: provider at bedside discussing results at this time. tw2 Vital Signs: 10:25 BP 157 / 86; Pulse 108; Resp 17; Temp 98.4; Pulse Ox 97% ; Pain 0/10; ll1 10:30 Weight 77.11 kg; Height 5 ft. 2 in. (157.48 cm); ll1 11:29 BP 154 / 75; Pulse 96; Resp 18; Pulse Ox 95% on R/A; sv 12:28 BP 142 / 78; Pulse 92; Resp 18; Pulse Ox 100% on R/A; tw2 13:15 BP 141 / 85; Pulse 97; Resp 18; Pulse Ox 97% ; sv 10:30 Body Mass Index 31.09 (77.11 kg, 157.48 cm) ll1 ED Course: 10:13 Patient arrived in ED. mr 10:27 Triage completed. ll1 10:28 Arm band placed on Patient placed in an exam room, on a stretcher. ll1 10:28 Bed in low position. Call light in reach. Adult w/ patient. monitor technician on. Pulse tw2 ox on. NIBP on. Warm blanket given. emesis bag given to pt at this time. 10:34 Rozina Mancera, RN is Primary Nurse. tw2 10:41 Raad Cruz MD is Attending Physician. rn 10:42 CT completed. Patient tolerated procedure well. Patient moved to CT via stretcher. sj Patient moved back from CT. 10:51 CT Head Brain wo Cont In Process Unspecified. EDMS 11:14 Initial lab(s) drawn, by me, sent to lab. Inserted saline lock: 20 gauge in right tw2 antecubital area, using aseptic technique. Blood collected. 12:50 Brain Wo Cont MRI In Process Unspecified. EDMS 13:16 Urine Culture Sent. sv 13:45 Kelby Bosch MD is Referral Physician. rn 13:52 No provider procedures requiring assistance completed. IV discontinued, intact, tw2 bleeding controlled, No redness/swelling at site. Pressure dressing applied. Administered Medications: 11:24 Drug: Meclizine 50 mg Route: PO; tw2 13:17 Follow up: Response: No adverse reaction; No adverse reaction, no change in dizziness tw2 11:24 Drug: NS 0.9% 500 ml Route: IV; Rate: bolus; Site: right antecubital; tw2 13:17 Follow up: Response: No adverse reaction; IV Status: Completed infusion; IV Intake: tw2 500ml 11:25 Drug: NS 0.9% 1000 ml Route: IV; Rate: 1000 ml; Site: right antecubital; tw2 13:18 Follow up: Response: No adverse reaction; IV Status: Completed infusion; IV Intake: tw2 1000ml 12:30 Drug: Zofran (Ondansetron) 4 mg Route: IVP; Site: right antecubital; tw2 13:17 Follow up: Response: No adverse reaction; Nausea is decreased tw2 Intake: 13:17 IV: 500ml; Total: 500ml. tw2 13:18 IV: 1000ml; Total: 1500ml. tw2 Outcome: 13:45 Discharge ordered by . rn 13:52 Patient left the ED. 13:52 Discharged to home via wheelchair, with family. tw2 13:52 Condition: stable 13:52 Discharge instructions given to patient, family, Instructed on discharge instructions, follow up and referral plans. medication usage, Demonstrated understanding of instructions, follow-up care, medications, Prescriptions given X 2. Signatures: Dispatcher [employer] Nichelle Joiner RN RN sv Edward, Germania Lazaro, Raad Giang MD MD rn Calderon, Audri, RN RN aa5 Rozina Mancera RN RN tw2 Marcos Kerns RN RN ll1
--- NOTE | 2020-02-26 13:46 | EDPHYS ---
Physician Documentation [facility] Name: Vaishnavi Jose Age: 69 yrs Sex: Female : 1950 Arrival Date: 02/26/2020 Time: 10:13 Bed 2 Private MD: ED Physician Raad Cruz HPI: 02/25 13:24 This 69 yrs old Female presents to ER via Wheelchair with complaints of rn Vertigo, Blurred Vision. 13:24 This 69 yrs old Female presents to ER via Wheelchair with complaints of rn Vertigo. 13:24 The patient presents with lightheadedness, sense of spinning. Onset: The rn symptoms/episode began/occurred 4 day(s) ago. Modifying factors: The symptoms are alleviated by holding head still, lying down. Severity of symptoms: At their worst the symptoms were very mild in the emergency department the symptoms are unchanged. The patient has experienced a previous episode. The patient has not recently seen a physician. Reports dizziness, feels like room is spinning, began 4 days ago, no head injury, no fever, no focal neuro complaint. Has had once before. NO weakness/numbness/chest pain/sob/abd pain. + nausea. Feels like getting better. . Historical: - Allergies: 10:28 Codeine; ll1 10:28 Keflex; ll1 10:28 Latex, Natural Rubber; ll1 - Home Meds: 13:45 THYROID MEDICATION [Active]; Prevacid Oral [Active]; ALLERGY MEDICATION [Active]; tw2 - PMHx: 10:28 GERD; Thyroid problem; ll1 - PSHx: 10:28 Thyroidectomy; neck surgery; Cholecystectomy; ll1 - Immunization history:: Flu vaccine is not up to date. - Social history:: Smoking status: Patient/guardian denies using tobacco, the patient reports quitting approximately 40 years ago. - Family history:: not pertinent. - Hospitalizations: : No recent hospitalization is reported. ROS: 13:24 Constitutional: Negative for fever, chills, and weight loss, Eyes: Negative for injury, rn pain, redness, and discharge, Neck: Negative for injury, pain, and swelling, Cardiovascular: Negative for chest pain, palpitations, and edema, Respiratory: Negative for shortness of breath, cough, wheezing, and pleuritic chest pain, Abdomen/GI: Negative for abdominal pain, diarrhea, and constipation, Back: Negative for injury and pain, MS/Extremity: Negative for injury and deformity, Skin: Negative for injury, rash, and discoloration, Neuro: Negative for headache, weakness, numbness, tingling, and seizure. Exam: 13:24 Constitutional: This is a well developed, well nourished patient who is awake, alert, rn and in no acute distress. Head/Face: Normocephalic, atraumatic. Eyes: Pupils equal round and reactive to light, extra-ocular motions intact. Lids and lashes normal. Conjunctiva and sclera are non-icteric and not injected. Cornea within normal limits. Periorbital areas with no swelling, redness, or edema. Cardiovascular: Regular rate and rhythm. No pulse deficits. Respiratory: No increased work of breathing, no retractions or nasal flaring. Abdomen/GI: Soft, non-tender MS/ Extremity: Pulses equal, no cyanosis. Neurovascular intact. Full, normal range of motion. Equal circumference. Neuro: Awake and alert, GCS 15, oriented to person, place, time, and situation. Cranial nerves II-XII grossly intact. Motor strength 5/5 in all extremities. Sensory grossly intact. Cerebellar exam normal. 13:39 ECG was reviewed by the Attending Physician. rn Vital Signs: 10:25 BP 157 / 86; Pulse 108; Resp 17; Temp 98.4; Pulse Ox 97% ; Pain 0/10; ll1 10:30 Weight 77.11 kg; Height 5 ft. 2 in. (157.48 cm); ll1 11:29 BP 154 / 75; Pulse 96; Resp 18; Pulse Ox 95% on R/A; sv 12:28 BP 142 / 78; Pulse 92; Resp 18; Pulse Ox 100% on R/A; tw2 13:15 BP 141 / 85; Pulse 97; Resp 18; Pulse Ox 97% ; sv 10:30 Body Mass Index 31.09 (77.11 kg, 157.48 cm) ll1 MDM: 10:41 Patient medically screened. rn 13:44 Differential diagnosis: generalized weakness, hypovolemia, idiopathic dizziness, TIA, rn vertigo. Data reviewed: vital signs, nurses notes, lab test result(s), EKG, radiologic studies, CT scan, MRI, and as a result, I will discharge patient. Counseling: I had a detailed discussion with the patient and/or guardian regarding: the historical points, exam findings, and any diagnostic results supporting the discharge/admit diagnosis, lab results, radiology results, the need for outpatient follow up, to return to the emergency department if symptoms worsen or persist or if there are any questions or concerns that arise at home. Response to treatment: the patient's symptoms have mildly improved after treatment, and as a result, I will discharge patient. Special discussion: I discussed with the patient/guardian in detail that at this point there is no indication for admission to the hospital. It is understood, however, that if the symptoms persist or worsen the patient needs to return immediately for re-evaluation. Based on the history and exam findings, there is no indication for further emergent testing or inpatient evaluation. I discussed with the patient/guardian the need to see the neurologist for further evaluation of the symptoms. ED course: Pt improved, no acute findings on ct head or MRI brain, will dc home with neuro f/u with diagnosis of Vertigo. . 02/25 11:03 Order name: CBC with Diff; Complete Time: 13:39 rn 02/25 11:03 Order name: Basic Metabolic Panel; Complete Time: 13:39 rn 02/25 11:03 Order name: Urine Microscopic Only; Complete Time: 13:39 rn 02/25 11:03 Order name: Troponin (emerg Dept Use Only); Complete Time: 13:39 rn 02/25 12:51 Order name: Urine Dipstick--Ancillary (enter results); Complete Time: 13:39 aa5 02/25 13:09 Order name: Urine Culture [facility] 02/25 10:31 Order name: CT Head Brain wo Cont; Complete Time: 13:39 bd 02/25 11:03 Order name: IV Start; Complete Time: 11:18 rn 02/25 11:03 Order name: EKG; Complete Time: 11:04 rn 02/25 11:03 Order name: Brain Wo Cont MRI; Complete Time: 13:39 rn 02/25 11:03 Order name: Urine Dipstick-Ancillary (obtain specimen); Complete Time: 12:50 rn 02/25 11:03 Order name: EKG - Nurse/Tech; Complete Time: 11:24 rn EC:39 Rate is 91 beats/min. Rhythm is regular. QRS [place] is Normal. MT interval is normal. QRS rn interval is normal. QT interval is normal. No Q waves. T waves are Normal. No ST changes noted. Clinical impression: Normal ECG. Interpreted by me. Reviewed by me. Administered Medications: 11:24 Drug: Meclizine 50 mg Route: PO; tw2 13:17 Follow up: Response: No adverse reaction; No adverse reaction, no change in dizziness tw2 11:24 Drug: NS 0.9% 500 ml Route: IV; Rate: bolus; Site: right antecubital; tw2 13:17 Follow up: Response: No adverse reaction; IV Status: Completed infusion; IV Intake: tw2 500ml 11:25 Drug: NS 0.9% 1000 ml Route: IV; Rate: 1000 ml; Site: right antecubital; tw2 13:18 Follow up: Response: No adverse reaction; IV Status: Completed infusion; IV Intake: tw2 1000ml 12:30 Drug: Zofran (Ondansetron) 4 mg Route: IVP; Site: right antecubital; tw2 13:17 Follow up: Response: No adverse reaction; Nausea is decreased tw2 Disposition: 02/26/20 13:45 Discharged to Home. Impression: Vertigo. - Condition is Stable. - Discharge Instructions: Vertigo. - Prescriptions for Zofran ODT 4 mg Oral tablet,disintegrating - place 1 tablet by TRANSLINGUAL route every 8 hours As needed; 20 tablet. Meclizine 25 mg Oral Tablet - take 1 tablet by ORAL route every 8 hours As needed; 30 tablet. - Medication Reconciliation Form, Thank You Letter, Antibiotic Education, Prescription Opioid Use form. - Follow up: Kelby Bosch MD; When: As needed; Reason: Recheck today's complaints, Re-evaluation by your physician. - Problem is new. - Symptoms have improved. Signatures: Dispatcher [employer] EDMS Nichelle Leon RN RN sv Nieto, Roman, MD MD rn Wise, Tara, RN RN tw2 Marcos Kerns RN RN ll1 Corrections: (The following items were deleted from the chart) 13:52 13:45 02/26/2020 13:45 Discharged to Home. Impression: Vertigo. Condition is Stable. sv Forms are Medication Reconciliation Form, Thank You Letter, Antibiotic Education, Prescription Opioid Use. Follow up: Kelby Bosch; When: As needed; Reason: Recheck today's complaints, Re-evaluation by your physician. Problem is new. Symptoms have improved. rn
[2020-02-26 14:03] VITALS: TEMP 98.4
[2020-02-26 14:07] VITALS: BP 141/85; O2SAT 97
--- NOTE | 2020-02-27 07:17 | EKG ---
Test Date: 2020-02-26 Test Time: 11:16:52 Senior Project Manager Engineering: MARY CARMEN MEASUREMENT RESULTS: Intervals: Rate: 91 WV: 156 QRSD: 72 QT: 356 QTc: 437 [place]: P: 54 WV: 156 QRS: 33 T: 58 INTERPRETIVE STATEMENTS: Normal sinus rhythm Normal ECG Compared to ECG 02/10/2018 01:38:05 Sinus tachycardia no longer present Myocardial infarct finding no longer present Electronically Signed On 02-27-20 07:16:08 ENTREPRENEURSHIP PROGRAM DIRECTOR by Brandon Larson
== END 2020-02-26 13:52 | disposition home or self-care (01) ==
LOC: ER 10:09
DX: R42 Dizziness and giddiness (principal); E07.9 Disorder of thyroid, unspecified; K21.9 Gastro-esophageal reflux disease without esophagitis; Z88.1 Allergy status to other antibiotic agents; Z88.5 Allergy status to narcotic agent; Z91.040 Latex allergy status; Z91.048 Other nonmedicinal substance allergy status
CPT/HCPCS: 96361; 93005; 87088; 85025; 87086; 80048; 36415; 84484; 70450; 70551; 96374; 99285; J7040; J7030; J2405; 81003; 81015

== ENCOUNTER 2022-04-11 06:42 | Emergency (ER) | payer OTHER ==
--- NOTE | 2022-04-11 07:12 | EDPHYS ---
Physician Documentation [facility] Name: Vaishnavi Jose Age: 72 yrs Sex: Female : 1950 Arrival Date: 04/11/2022 Time: 06:52 Bed 20 Private MD: ED Physician Sae Puckett HPI: 04/11 07:09 This 72 yrs old Female presents to ER via Ambulatory with complaints of Insect Bite. sp3 07:09 72-year-old female with history of thyroid cancer presents with a 7-day history of sp3 right knee insect bite and surrounding erythema. Patient states that she was "concerned about a brown recluse". She denies any other symptoms including fever, skin necrosis, skin sloughing, chest pain shortness of breath, abdominal pain, nausea, vomiting, diarrhea, neurological changes, or any other symptoms on ROS at this time.. Historical: - Allergies: 07:05 Keflex; ll1 07:05 Codeine; ll1 07:05 Latex, Natural Rubber; ll1 07:05 Kiwi (Actinidia Chinensis); ll1 - PMHx: 07:05 Thyroid problem; GERD; ll1 - PSHx: 07:05 Cholecystectomy; thyroid SX; ll1 - Immunization history:: Client reports receiving the 2nd dose of the Covid vaccine. - Social history:: Smoking status: Patient/guardian denies using tobacco, the patient reports quitting approximately 45 years ago. ROS: 07:09 Constitutional: Negative for fever, chills, and weight loss, Eyes: Negative for injury, sp3 pain, redness, and discharge, ENT: Negative for injury, pain, and discharge, Neck: Negative for injury, pain, and swelling, Cardiovascular: Negative for chest pain, palpitations, and edema, Respiratory: Negative for shortness of breath, cough, wheezing, and pleuritic chest pain, Abdomen/GI: Negative for abdominal pain, nausea, vomiting, diarrhea, and constipation, Back: Negative for injury and pain, MS/Extremity: Negative for injury and deformity, Neuro: Negative for headache, weakness, numbness, tingling, and seizure, Psych: Negative for depression, anxiety, suicide ideation, homicidal ideation, and hallucinations, Allergy/Immunology: Negative for hives, rash, and allergies. 07:09 All other systems are negative. Exam: 07:10 Constitutional: This is a well developed, well nourished patient who is awake, alert, sp3 and in no acute distress. Head/Face: Normocephalic, atraumatic. Chest/axilla: Normal chest wall appearance and motion. Nontender with no deformity. No lesions are appreciated. Cardiovascular: Regular rate and rhythm with a normal S1 and S2. No gallops, murmurs, or rubs. Normal PMI, no JVD. No pulse deficits. Respiratory: Lungs have equal breath sounds bilaterally, clear to auscultation and percussion. No rales, rhonchi or wheezes noted. No increased work of breathing, no retractions or nasal flaring. Abdomen/GI: Soft, non-tender, with normal bowel sounds. No distension or tympany. No guarding or rebound. No evidence of tenderness throughout. Back: No spinal tenderness. No costovertebral tenderness. Full range of motion. MS/ Extremity: Pulses equal, no cyanosis. Neurovascular intact. Full, normal range of motion. Neuro: Awake and alert, GCS 15, oriented to person, place, time, and situation. Cranial nerves II-XII grossly intact. Motor strength 5/5 in all extremities. Sensory grossly intact. Cerebellar exam normal. Normal gait. 07:10 Skin: Small pustular lesion on top of the patella with surrounding 2 cm of erythema without subcutaneous gas or any other concerning findings. Distal neurological and vascular exam are normal. No satellite lesions are noted.. Vital Signs: 07:06 BP 173 / 86; Pulse 104; Resp 17; Temp 97.8; Pulse Ox 98% ; Height 5 ft. 2 in. (157.48 ll1 cm); Pain 0/10; MDM: 07:04 Patient medically screened. sp3 07:10 Data reviewed: vital signs, nurses notes. ED course: 72-year-old female with insect sp3 bite and mild cellulitis. Presentation does not a brown recluse or similar presentation. Will reassure patient and place patient on Bactrim for 5 days and follow-up with her PCP. Patient is not septic and there is no wound necrosis.. Administered Medications: No medications were administered Disposition Summary: 04/11/22 07:11 Discharge Ordered Location: Home sp3 Condition: Stable sp3 Diagnosis - Insect bite (nonvenomous) of lower leg sp3 Followup: sp3 - With: Private Physician - When: Upon discharge from the Emergency Department - Reason: Recheck today's complaints Discharge Instructions: - Discharge Summary Sheet sp3 - Insect Bite, Adult sp3 - How to Protect Your Child From Insect Bites sp3 Forms: - Medication Reconciliation Form sp3 - Thank You Letter sp3 - Antibiotic Education sp3 - Prescription Opioid Use sp3 Prescriptions: - Bactrim DS 800-160 mg Oral Tablet - take 1 tablet by ORAL route every 12 hours for 5 days; 10 tablet; Refills: 0, sp3 Product Selection Permitted Signatures: Marcos Kerns RN RN ll1 Sae Puckett MD MD sp3
--- NOTE | 2022-04-11 07:12 | ER ---
Nurse's Notes [facility] Name: Vaishnavi Jose Age: 72 yrs Sex: Female : 1950 Arrival Date: 04/11/2022 Time: 06:52 Bed 20 Private MD: Diagnosis: Insect bite (nonvenomous) of lower leg Presentation: 04/11 07:06 Chief complaint: Patient states: R knee pain, redness, swelling for the past 7 days. No ll1 fever. Possible insect bite. Coronavirus screen: Vaccine status: Patient reports receiving the 2nd dose of the covid vaccine. Client denies travel out of the [place] in the last 14 days. At this time, the client does not indicate any symptoms associated with coronavirus-19. Ebola Screen: Patient denies travel to an Ebola-affected area in the 21 days before illness onset. Initial Sepsis Screen: Does the patient meet any 2 criteria? No. Patient's initial sepsis screen is negative. Does the patient have a suspected source of infection? Yes: Skin breakdown/wound. Risk Assessment: Do you want to hurt yourself or someone else? Patient reports no desire to harm self or others. Onset of symptoms was April 04, 2022. 07:06 Method Of Arrival: Ambulatory ll1 07:06 Acuity: CLEVE 4 ll1 Triage Assessment: 07:08 Bite description: bite sustained to right leg is from insect by an unknown animal. ll1 General: Appears in no apparent distress. Behavior is calm, cooperative, appropriate for age. Pain: Denies pain. Derm: Abscess located on right leg is 2 small abscesses with slight redness to R knee Reports pain. Musculoskeletal: Circulation, motion, and sensation intact. Capillary refill < 3 seconds. 07:10 Bite description: animal information: vaccination(s) is not applicable. ll1 Historical: - Allergies: 07:05 Keflex; ll1 07:05 Codeine; ll1 07:05 Latex, Natural Rubber; ll1 07:05 Kiwi (Actinidia Chinensis); ll1 - PMHx: 07:05 Thyroid problem; GERD; ll1 - PSHx: 07:05 Cholecystectomy; thyroid SX; ll1 - Immunization history:: Client reports receiving the 2nd dose of the Covid vaccine. - Social history:: Smoking status: Patient/guardian denies using tobacco, the patient reports quitting approximately 45 years ago. Screenin:09 Abuse screen: Denies threats or abuse. Nutritional screening: No deficits noted. ll1 Tuberculosis screening: No symptoms or risk factors identified. Fall Risk Total Dillon Fall Scale indicates No Risk (0-24 pts). 07:10 [facility] ED Fall Risk Assessment (Adult) Score/Fall Risk Level 0 - 2 = Low Risk ll1 Oriented to surroundings, Maintained a safe environment, Hourly rounding (assess needs \T\ fall precautionary measures) done. Assessment: 07:10 Derm: Skin is intact, Skin is pink, warm \T\ dry. ll1 07:16 Reassessment: No changes from previously documented assessment. Patient and/or family ll1 updated on plan of care and expected duration. Pain level reassessed. Patient is alert, oriented x 3, equal unlabored respirations, skin warm/dry/pink. Vital Signs: 07:06 BP 173 / 86; Pulse 104; Resp 17; Temp 97.8; Pulse Ox 98% ; Height 5 ft. 2 in. (157.48 ll1 cm); Pain 0/10; ED Course: 06:52 Patient arrived in ED. ja2 06:57 Arm band placed on Patient placed in an exam room, on a stretcher. ll1 07:04 Sae Puckett MD is Attending Physician. sp3 07:05 Marcos Kerns RN is Primary Nurse. ll1 07:08 Triage completed. ll1 07:09 Patient has correct armband on for positive identification. Bed in low position. Call ll1 light in reach. Side rails up X 1. Cardiac monitoring not applicable on this patient. 07:10 No provider procedures requiring assistance completed. Patient did not have IV access ll1 during this emergency room visit. Administered Medications: No medications were administered Medication: 07:09 VIS not applicable for this client. ll1 Outcome: 07:10 Condition: stable ll1 07:11 Discharge ordered by . sp3 07:16 Discharged to home ambulatory. ll1 07:16 Discharge instructions given to patient, Instructed on discharge instructions, follow up and referral plans. medication usage, Demonstrated understanding of instructions, follow-up care, medications, Prescriptions given X 1. 07:17 Patient left the ED. ll1 Signatures: Marcos Kerns RN RN ll1 Sae Puckett MD MD sp3 Shira Dang
[2022-04-11 07:22] VITALS: BP 173/86; TEMP 97.8; O2SAT 98
== END 2022-04-11 07:17 | disposition home or self-care (01) ==
LOC: ER 06:42
DX: S80.861A Insect bite (nonvenomous), right lower leg, initial encounter (principal); Z88.1 Allergy status to other antibiotic agents; Z88.5 Allergy status to narcotic agent; Z91.018 Allergy to other foods; Z91.040 Latex allergy status
CPT/HCPCS: 99282

== ENCOUNTER 2022-04-14 11:13 | Inpatient (IN) | payer OTHER ==
[2022-04-14 12:30] LABS: Hematocrit 42.7 % (36.0-45.0); Lymphocytes % 16.6 % (15.3-44.8); MCV 85.7 fL (80-100); RBC Red Blood Cell Count 4.98 M/uL (3.86-4.86)
[2022-04-14 12:48] LABS: Albumin 4.1 g/dL (3.4-5.0); Potassium 3.3 mmol/L (3.5-5.1)
[2022-04-14] MEDS ORDERED: Meropenem 1000 MG/VIAL IV ONE (13:16)
--- NOTE | 2022-04-14 13:16 | EDPHYS ---
Physician Documentation [facility] Name: Vaishnavi Jose Age: 72 yrs Sex: Female : 1950 Arrival Date: 04/14/2022 Time: : Bed 18 Private MD: DELPHINE Physician Wayne Salvador HPI: 04/14 13:27 This 72 yrs old Female presents to ER via Ambulatory with complaints of Rash. rt 13:27 The patient's rash thought to be caused by insect bites. The rash is located on the rt face and left leg. The rash can be described as crusted, erythematous. Onset: The symptoms/episode began/occurred 1 week(s) ago. Associated signs and symptoms: Pertinent positives: itching, Pertinent negatives: fever. Severity of symptoms: At their worst the symptoms were moderate. She was seen recently in the ED for reported bug bites, apparent cellulitis to the left knee. The patient was prescribed Bactrim. She states that the erythema continues to worsen and that she woke up with it spreading to her face. She reports that it itches but denies other acute complaints at this time. Symptoms are moderate in severity, no other aggravating or alleviating factors.. Historical: - Allergies: 11:27 Codeine; ph 11:27 Keflex; ph 11:27 Kiwi (Actinidia Chinensis); ph 11:27 Latex, Natural Rubber; ph - PMHx: 11:27 GERD; Thyroid problem; ph - PSHx: 11:27 thyroid sx; Cholecystectomy; ph - Immunization history:: Adult Immunizations unknown. - Social history:: Smoking status: Patient/guardian denies using tobacco, the patient reports quitting approximately 40 years ago. - Family history:: not pertinent. ROS: 13:27 Constitutional: Negative for fever, chills, and weight loss, Eyes: Negative for injury, rt pain, redness, and discharge, ENT: Negative for injury, pain, and discharge, Neck: Negative for injury, pain, and swelling, Cardiovascular: Negative for chest pain, palpitations, and edema, Respiratory: Negative for shortness of breath, cough, wheezing, and pleuritic chest pain, Abdomen/GI: Negative for abdominal pain, nausea, vomiting, diarrhea, and constipation, Back: Negative for injury and pain, MS/Extremity: Negative for injury and deformity, Neuro: Negative for headache, weakness, numbness, tingling, and seizure, Psych: Negative for depression, anxiety, suicide ideation, homicidal ideation, and hallucinations. 13:27 Skin: Positive for cellulitis, erythema. Exam: 13:27 Constitutional: This is a well developed, well nourished patient who is awake, alert, rt and in no acute distress. Head/Face: Normocephalic, atraumatic. Eyes: Pupils equal round and reactive to light, extra-ocular motions intact. Lids and lashes normal. Conjunctiva and sclera are non-icteric and not injected. Cornea within normal limits. Periorbital areas with no swelling, redness, or edema. ENT: Nares patent. No nasal discharge, no septal abnormalities noted. Tympanic membranes are normal and external auditory canals are clear. Oropharynx with no redness, swelling, or masses, exudates, or evidence of obstruction, uvula midline. Mucous membranes moist. Chest/axilla: Normal chest wall appearance and motion. Nontender with no deformity. No lesions are appreciated. Cardiovascular: Regular rate and rhythm with a normal S1 and S2. No gallops, murmurs, or rubs. Normal PMI, no JVD. No pulse deficits. Respiratory: Lungs have equal breath sounds bilaterally, clear to auscultation and percussion. No rales, rhonchi or wheezes noted. No increased work of breathing, no retractions or nasal flaring. Abdomen/GI: Soft, non-tender, with normal bowel sounds. No distension or tympany. No guarding or rebound. No evidence of tenderness throughout. MS/ Extremity: Pulses equal, no cyanosis. Neurovascular intact. Full, normal range of motion. Neuro: Awake and alert, GCS 15, oriented to person, place, time, and situation. Cranial nerves II-XII grossly intact. Motor strength 5/5 in all extremities. Sensory grossly intact. Cerebellar exam normal. Normal gait. Psych: Awake, alert, with orientation to person, place and time. Behavior, mood, and affect are within normal limits. 13:27 Skin: Erythema with impetiginous changes overlying the left knee tracking proximally as well as over the face, bilateral cheeks.. Vital Signs: 12:25 BP 140 / 75; Pulse 104; Resp 18; Temp 98.4; Pulse Ox 96% on R/A; Weight 63.5 kg; Height ph 5 ft. 2 in. (157.48 cm); 14:00 BP 137 / 72; Pulse 91; Resp 18; Pulse Ox 99% on R/A; ph 15:21 BP 140 / 62; Pulse 97; Resp 18; Temp 98.0; Pulse Ox 99% on R/A; ph 12:25 Body Mass Index 25.61 (63.50 kg, 157.48 cm) ph MDM: 11:28 Patient medically screened. rt 13:29 Differential diagnosis: impetigo, cellulitis. Data reviewed: vital signs, nurses notes, rt old medical records, lab test result(s). ED course: Patient presents to the ED with cellulitis, worsening despite being on outpatient antibiotics. The patient is worsening changes overlying her face as well. Given degree of cellulitis, degree of worsening despite being on antibiotics, will admit for further care. There is no evidence of a septic arthritis. No drainable abscess.. 04/14 11:39 Order name: Blood Culture Adult (2) rt 04/14 11:39 Order name: CBC with Diff; Complete Time: 12:44 rt 04/14 11:39 Order name: CMP; Complete Time: 13:05 rt 04/14 11:39 Order name: Lactate w/ 2H reflex if indic.; Complete Time: 13:05 rt 04/14 13:45 Order name: SARS RAPID; Complete Time: 14:40 ph 04/14 15:55 Order name: Lactate Sepsis 2 HR Follow-up; Complete Time: 16:10 EDMS 04/14 16:01 Order name: Vancomycin Level Trough; Complete Time: 16:10 EDMS 04/14 16:04 Order name: Phosphorus; Complete Time: 16:10 EDMS 04/14 16:04 Order name: NT PRO-BNP; Complete Time: 16:10 EDMS 04/14 16:04 Order name: Magnesium; Complete Time: 16:10 EDMS Administered Medications: 13:42 Drug: Meropenem 1 grams Route: IV; Rate: calculated rate; Site: right antecubital; ph 14:20 Follow up: Response: No adverse reaction; IV Status: Completed infusion ph 13:42 Drug: Mupirocin Ointment 2 % 1 application Route: Topical; Site: affected area; ph 16:38 Follow up: Response: No adverse reaction ph 14:29 Drug: NS 0.9% 1000 ml Route: IV; Rate: 1 bolus; Site: right antecubital; ph 16:00 Follow up: Response: No adverse reaction; IV Status: Completed infusion; IV Intake: ph 1000ml Disposition Summary: 04/14/22 13:15 Hospitalization Ordered Hospitalization Status: Inpatient Admission rt Provider: Yeyo Cruz rt Location: Telemetry/MedSur (Inpatient) rt Condition: Stable rt Problem: new rt Symptoms: are unchanged rt Bed/Room Type: Standard rt Room Assignment: 207(04/14/22 15:17) bd Diagnosis - Cellulitis of face rt - Cellulitis of left lower limb rt Forms: - Medication Reconciliation Form rt - SBAR form rt Signatures: Dispatcher [employer] EDCarlotta Rahman Patricia RN RN Wayne Salvador MD MD rt Corrections: (The following items were deleted from the chart) 15:17 13:15 rt bd
--- NOTE | 2022-04-14 13:16 | ER ---
Nurse's Notes [facility] Name: Vaishnavi Jose Age: 72 yrs Sex: Female : 1950 Arrival Date: 04/14/2022 Time: : Bed 18 Private MD: Diagnosis: Cellulitis of face;Cellulitis of left lower limb Presentation: 04/14 12:25 Chief complaint: Patient states: Rash to face and R knee, states that she has been ph taking bactrim PO w/ no improvement, denies fever but reports warmth to area. Coronavirus screen: Vaccine status: Patient reports receiving the 2nd dose of the covid vaccine. Ebola Screen: No symptoms or risks identified at this time. Initial Sepsis Screen: Does the patient meet any 2 criteria? No. Patient's initial sepsis screen is negative. Does the patient have a suspected source of infection? Yes: Skin breakdown/wound. Risk Assessment: Do you want to hurt yourself or someone else? Patient reports no desire to harm self or others. Onset of symptoms was April 14, 2022. 12:25 Method Of Arrival: Ambulatory ph 12:25 Acuity: CLEVE 3 ph Triage Assessment: 12:27 General: Appears in no apparent distress. comfortable, well groomed, Behavior is calm, ph cooperative, appropriate for age, Denies fever. Pain: Complains of pain in right knee. Neuro: Level of Consciousness is awake, alert, obeys commands, Oriented to person, place, time, situation. Cardiovascular: Capillary refill < 3 seconds in bilateral fingers Patient's skin is warm and dry. Respiratory: Airway is compromised Respiratory effort is even, unlabored. Derm: Skin is healthy with good turgor, Skin is pink, warm \T\ dry. Rash noted that is macular, red, raised, on right cheek, nose and left cheek. Derm: Rash noted that is red, raised, on right knee. Historical: - Allergies: 11:27 Codeine; ph 11:27 Keflex; ph 11:27 Kiwi (Actinidia Chinensis); ph 11:27 Latex, Natural Rubber; ph - PMHx: 11:27 GERD; Thyroid problem; ph - PSHx: 11:27 thyroid sx; Cholecystectomy; ph - Immunization history:: Adult Immunizations unknown. - Social history:: Smoking status: Patient/guardian denies using tobacco, the patient reports quitting approximately 40 years ago. - Family history:: not pertinent. Screenin:28 [facility] ED Fall Risk Assessment (Adult) History of falling in the last 3 months, ph including since admission No falls in past 3 months (0 pts) Confusion or Disorientation No (0 pts) Intoxicated or Sedated No (0 pts) Impaired Gait No (0 pts) Mobility Assist Device Used No (0 pt) Altered Elimination No (0 pt) Score/Fall Risk Level 0 - 2 = Low Risk Maintained a safe environment. Abuse screen: Denies threats or abuse. Denies injuries from another. Nutritional screening: No deficits noted. Tuberculosis screening: No symptoms or risk factors identified. Assessment: 13:00 General: SEE TRIAGE ASSESSMENT. ph 14:00 Reassessment: Patient appears in no apparent distress at this time. Patient and/or ph family updated on plan of care and expected duration. Pain level reassessed. Patient is alert, oriented x 3, equal unlabored respirations, skin warm/dry/pink. 15:00 Reassessment: Patient appears in no apparent distress at this time. Patient and/or ph family updated on plan of care and expected duration. Pain level reassessed. Patient is alert, oriented x 3, equal unlabored respirations, skin warm/dry/pink. Vital Signs: 12:25 BP 140 / 75; Pulse 104; Resp 18; Temp 98.4; Pulse Ox 96% on R/A; Weight 63.5 kg; Height ph 5 ft. 2 in. (157.48 cm); 14:00 BP 137 / 72; Pulse 91; Resp 18; Pulse Ox 99% on R/A; ph 15:21 BP 140 / 62; Pulse 97; Resp 18; Temp 98.0; Pulse Ox 99% on R/A; ph 12:25 Body Mass Index 25.61 (63.50 kg, 157.48 cm) ph ED Course: 11:21 Patient arrived in ED. [id number] 11:26 Wayne Salvador MD is Attending Physician. rt 11:26 Sirisha Young, RN is Primary Nurse. ph 12:26 Triage completed. ph 12:27 Arm band placed on Patient placed in a hallway bed. ph 12:28 Patient has correct armband on for positive identification. Bed in low position. Call light in reach. Side rails up X 1. Pulse ox on. NIBP on. Door closed. Noise minimized. 12:28 Initial lab(s) drawn, by me, sent to lab. Inserted saline lock: 22 gauge in right ph antecubital area, using aseptic technique. Blood collected. 13:14 Yeyo Cruz MD is Hospitalizing Provider. rt 16:37 No provider procedures requiring assistance completed. Patient admitted, IV remains in ph place. Administered Medications: 13:42 Drug: Meropenem 1 grams Route: IV; Rate: calculated rate; Site: right antecubital; ph 14:20 Follow up: Response: No adverse reaction; IV Status: Completed infusion ph 13:42 Drug: Mupirocin Ointment 2 % 1 application Route: Topical; Site: affected area; ph 16:38 Follow up: Response: No adverse reaction ph 14:29 Drug: NS 0.9% 1000 ml Route: IV; Rate: 1 bolus; Site: right antecubital; ph 16:00 Follow up: Response: No adverse reaction; IV Status: Completed infusion; IV Intake: ph 1000ml Medication: 15:22 VIS not applicable for this client. ph Intake: 16:00 IV: 1000ml; Total: 1000ml. ph Outcome: 13:15 Decision to Hospitalize by Provider. rt 16:37 Admitted to Med/surg accompanied by tech, via wheelchair, room 207, with chart, Report ph called to ANAI Thurston 16:37 Condition: stable 16:38 Patient left the ED. ph Signatures: Sirisha Young RN RN ph Mitchell, Jazmin [email or web address] Wayne Salvador MD MD rt
[2022-04-14] MEDS ORDERED: NA CHLORIDE 0.9% 100 ML IV ONE (13:17)
[2022-04-14] MEDS ORDERED: MUPIROCIN 2% OINT 22GM TUBE TOP ONE (13:17)
[2022-04-14 14:31] LABS: SARS-CoV-2 Antigen Rapid Res Negative (Negative)
[2022-04-14] MEDS ORDERED: NA CHLORIDE 0.9% 1,000 ML ONE (14:32)
[2022-04-14] MEDS ORDERED: HYDROCODONE/APAP 5/325 MG TAB PO PRN (14:41)
[2022-04-14] MEDS ORDERED: ACETAMINOPHEN 325 MG TABLET PO PRN (14:41)
[2022-04-14] MEDS ORDERED: ONDANSETRON 4 MG/2 ML VIAL IV PRN (14:50)
[2022-04-14] MEDS ORDERED: VANCOMYCIN 1.25 GM in NA CHLORIDE 0.9% 250 ML IVPB SCH ×2 (15:00→16:00)
--- NOTE | 2022-04-14 15:02 | P.HP ---
Certification for Inpatient Patient admitted to: Inpatient With expected LOS: >2 Midnights Patient will require the following post-hospital care: None Practitioner: I am a practitioner with admitting privileges, knowledge of patient current condition, hospital course, and medical plan of care. Services: Services provided to patient in accordance with Admission requirements found in Title 42 Section 412.3 of the Code of Federal Regulations Patient History Date of Service: 04/14/22 Reason for admission: Facial\right knee swelling\redness\rash History of Present Illness: Patient is a 72-year-old female with a past medical history significant for GERD, hypothyroidism who presents with complaint of swelling\redness\\rash to her bilateral cheeks onset 3 days ago. Patient is a poor historian and unable to provide accurate history. Patient reported that she was seen in the hospital for a right knee cellulitis and was prescribed Bactrim 3 days ago. She was discharged home. Patient indicated that she did not notice any improvement in right knee swelling and redness. Patient indicated that she does not feel pain in the cheeks or right knee. Patient reported that her swelling and redness to her right knee is extending to her lower extremity on the right side. Patient denies any other signs or symptoms. Symptoms are aggravated or relieved by nothing. Patient decided to present to the hospital due to worsening symptoms. Of note, patient reported that she was bit by an insect before the onset of symptoms Allergies cephalexin monohydrate [From Keflex] Allergy (Intermediate, Verified 12/03/11 19:36) UNKNOWN hydrocodone [Hydrocodone] Allergy (Intermediate, Verified 12/03/11 19:36) Itching Latex, Natural Rubber Allergy (Verified 02/10/18 11:14) Rash Home Medications: Famotidine [Pepcid*] 20 mg PO DAILY 02/10/18 Levothyroxine [Synthroid*] 125 mcg PO [id number] 02/10/18 - Past Medical/Surgical History Diabetic: No -: gerd -: history of thyroid cancer -: thyroidectomy -: thyroidectomy - Family History Family History: Reviewed- Non-Contributory - Social History Smoking Status: Former smoker Alcohol use: No CD- Drugs: No Caffeine use: No Place of Residence: Home Review of Systems General: Unremarkable Eyes: Unremarkable ENT: Unremarkable Respiratory: Unremarkable Cardiovascular: Unremarkable Gastrointestinal: Unremarkable Genitourinary: Unremarkable Musculoskeletal: Other (right knee swelling ) Integumentary: Other (Bilateral cheeks\right knee redness ) Neurological: Unremarkable Lymphatics: Unremarkable Physical Examination - Physical Exam General: Alert, In no apparent distress, Oriented x3, Cooperative HEENT: Atraumatic, PERRLA, Mucous membr. moist/pink, EOMI, Sclerae nonicteric Neck: Supple, 2+ carotid pulse no bruit, No LAD, Without JVD or thyroid abnormality Respiratory: Clear to auscultation bilaterally, Normal air movement Cardiovascular: Regular rate/rhythm, Normal S1 S2 Capillary refill: <2 Seconds Gastrointestinal: Normal bowel sounds, Non-distended, No tenderness Musculoskeletal: No clubbing, No tenderness Integumentary: Rash(es), Tenderness/swelling, Erythema Neurological: Normal speech, Normal tone, Normal affect Lymphatics: No axilla or inguinal lymphadenopathy - Studies Laboratory Data (last 24 hrs) 04/14/22 12:20: Sodium 130 L, Potassium 3.3 L, BUN 9, Creatinine 1.08 H, Glucose 165 H, Total Bilirubin 1.0, AST 41 H, ALT 44, Alkaline Phosphatase 80 04/14/22 12:20: WBC 5.80, Hgb 14.5, Hct 42.7, Plt Count 200 Assessment and Plan - Plan --Facial\right knee\RLE cellulitis. Blood cultures pending. Patient placed on antibiotics. Infectious disease MD consulted. Will await further recommendation. --CKD 2. Stable. We will continue to monitor renal functions. --Hypothyroidism. Continue Synthroid. --GERD. Continue home medication. --Elevated blood pressure without a diagnosis of hypertension. We will manage BP with labetalol as needed. --DVT prophylaxis with heparin subQ. Discharge Plan: Home Plan to discharge in: Greater than 2 days - Advance Directives Does patient have a Living Will: No Does patient have a Durable POA for Healthcare: No - Code Status/Comfort Care Code Status Assessed: Yes Physician Review: Patient Assessed, Agree with Above Assessment and Plan Critical Care: No
[2022-04-14 16:03] LABS: Magnesium 2.2 mg/dL (1.6-2.4); Phosphorus 2.9 mg/dL (2.5-4.9)
[2022-04-14] MEDS: CEFEPIME 1 GM in NA CHLORIDE 0.9% 100 ML IV SCH (16:57)
[2022-04-14] MEDS ORDERED: POTASSIUM CL SA 10 MEQ TAB PO ONE (17:00)
[2022-04-14 17:17] VITALS: BMI 25.6
[2022-04-14] MEDS: HEPARIN 5000 UNIT/ML 1 ML VIAL SQ SCH (21:15)
[2022-04-15 04:07] LABS: Absolute Lymphocytes (CBC) 1.1 K/uL (0.7-4.9); Lymphocytes % 23.2 % (15.3-44.8); MCV 85.4 fL (80-100); MPV 9.3 fL (7.6-11.3); RBC Red Blood Cell Count 4.21 M/uL (3.86-4.86)
[2022-04-15 04:25] LABS: Potassium 4.4 mmol/L (3.5-5.1)
[2022-04-15] MEDS: LEVOTHYROXINE SOD 0.125 MG TAB PO SCH (05:59)
[2022-04-15 06:45] LABS: Urine Bacteria <20 /HPF (<20); Urine Mucus Slight /HPF (None Seen); Urine RBC <5 /HPF (None Seen); Urine WBC Clump Rare /HPF (None Seen)
[2022-04-15 06:47] LABS: Specific Gravity 1.008 (1.005-1.030); Urine Bilirubin NEGATIVE (Negative); Urine Blood Negative (Negative); Urine Clarity Clear (Clear); Urine Color Light-Yellow (Yellow); Urine Glucose NEGATIVE (Negative); Urine Protein NEGATIVE (Negative); Urine Urobilinogen Normal (Normal); Urine pH 5.5 (5.0-7.0)
[2022-04-15] MEDS ORDERED: LABETALOL 20 MG/4ML SYRINGE IV PRN (08:04)
[2022-04-15] MEDS ORDERED: CEFEPIME 1 GM/VIAL ONE (09:14)
[2022-04-15] MEDS ORDERED: NA CHLORIDE 0.9% 100 ML ONE (09:16)
[2022-04-15] MEDS: ASPIRIN 81 MG CHEWABLE TABLET PO SCH (09:46)
[2022-04-15] MEDS: FAMOTIDINE 20 MG TAB PO SCH (09:46)
[2022-04-15] MEDS: CEFEPIME 1 GM in NA CHLORIDE 0.9% 100 ML IV SCH (09:47)
[2022-04-15] MEDS: HEPARIN 5000 UNIT/ML 1 ML VIAL SQ SCH ×2 (09:47→19:48)
[2022-04-15] MEDS: DIPHENHYDRAMINE 25 MG TAB/CAP PO PRN (15:16)
[2022-04-15] MEDS ORDERED: VANCOMYCIN 1.25 GM in NA CHLORIDE 0.9% 250 ML IVPB SCH (16:00)
[2022-04-15] MEDS: CEFEPIME 2 GM in NA CHLORIDE 0.9% 100 ML IV SCH (19:48)
--- NOTE | 2022-04-15 20:34 | P.PN ---
Date of Service: 04/15/22 Subjective: no acute events overnight rash/lesions remain the same +itchy, swollen, but not weeping ROS: A complete review of systems was performed and is negative except as mentioned above Physical Exam: Gen: NAD, AOx3 HEENT: normal conjunctiva, sclera anicteric CV: regular rate & rhythm, no edema Pulm: non-labored respirations, clear bilaterally Abd: soft, non-tender, non-distended MSK: no contractures, no tenderness, full ROM of R knee Skin: +malar rash with crusting, +R knee: erythema, induration, warm to touch Neuro: normal speech, normal affect, moves all extremities vitals reviewed Problem List Right knee cellulitis Facial erythema/swelling Hypothyroidism, acquired s/p thyroidectomy h/o thyroid cancer s/p thyroidectomy GERD unclear source of erythma, seems to be infectious, possibly bacterial no improvement on bactrim over last several days worsening of face states facial changes began prior to bactrim patient does not appear septic itching on both lesions, with induration, was placeing mupirocin on them continue broad spectrum antibiotics some slight improvement this afternoon ID consulted, to see patient tomorrow, will perform punch biopsy if kit available ?lupus VTE: heparin SQ Code: full Dispo: home, ~1-2 days Time Spent Managing Pts Care (In Minutes): 35
[2022-04-16] MEDS: DIPHENHYDRAMINE 25 MG TAB/CAP PO PRN (05:21)
[2022-04-16] MEDS: LEVOTHYROXINE SOD 0.125 MG TAB PO SCH (05:34)
[2022-04-16 06:08] LABS: Absolute Lymphocytes (CBC) 1.1 K/uL (0.7-4.9); Hematocrit 38.5 % (36.0-45.0); Lymphocytes % 29.6 % (15.3-44.8); MCV 85.9 fL (80-100); RBC Red Blood Cell Count 4.47 M/uL (3.86-4.86)
[2022-04-16 06:24] LABS: Albumin 3.6 g/dL (3.4-5.0); Bilirubin Total 1.2 mg/dL (0.2-1.0); C-Reactive Protein 9.86 mg/L (<3.00); Magnesium 2.3 mg/dL (1.6-2.4); Potassium 3.8 mmol/L (3.5-5.1); Protein, Total 6.7 g/dL (6.4-8.2)
[2022-04-16] MEDS: FAMOTIDINE 20 MG TAB PO SCH (08:13)
[2022-04-16] MEDS: HEPARIN 5000 UNIT/ML 1 ML VIAL SQ SCH (08:14)
[2022-04-16] MEDS: CEFEPIME 2 GM in NA CHLORIDE 0.9% 100 ML IV SCH (08:14)
[2022-04-16] MEDS: ASPIRIN 81 MG CHEWABLE TABLET PO SCH (08:14)
[2022-04-16] MEDS ORDERED: POTASSIUM CL SA 10 MEQ TAB PO ONE (09:00)
[2022-04-16 09:13] VITALS: O2SAT 96
[2022-04-16 12:27] VITALS: BP 140/71; TEMP 97.9
--- NOTE | 2022-04-16 13:18 | CON ---
History Of Present Illness: This is a 72-year-old female I was consulted for evaluation of right kne e and facial rash versus cellulitis. Patient has significant past medical history of thyroid cancer, surgically removed and now patient is on levothyroxine, followed at [facility], gastroesophageal re flux disease, rosacea. Denies any headache, nausea, vomiting, chest pain, abdominal pain, constipati on, diarrhea, coming into the hospital on March 31 with same problem and was seen in the emergency room and discharged from the hospital. Patient continued to have problem with increased w armth. No fevers. Patient was treated with Bactrim as an outpatient for 3 days prior to coming to [facility]. Past Medical History: As per HPI. Social History: Tobacco positive. Alcohol negative. Family History: Noncontributory. Medications: Vancomycin and cefepime. See MAR for other medications. Allergies: CEPHALEXIN, HYDROCODONE, LATEX AND RUBBER. Review of Systems: A 10-point review was performed. Physical Examination: General: A 72-year-old female, lying in bed, not in any acute cardiopulmonary distress. Vital Signs: Temperature 97.9, pulse 86, blood pressure 140/71. HEENT: Erythematous rash noted in a butterfly pattern all across the nasal bridge and both cheeks be low the eye. Neck: Supple. No JVD. Lungs: Clear to auscultation. Heart: S1, S2. Regular. Abdomen: Soft, nontender. Bowel sounds present. Extremities: Right knee with erythematous rash with slightly increased warmth, no tenderness. Laboratory Data: Shows WBC 3.9, hemoglobin 13.1, platelets 166. Chemistry shows BUN of 6, creatinin e 0.7. C-reactive protein of 9.6, eosinophil is 7.3. Assessment And Plan: Dermatitis involving the facial and right knee area versus cellulitis. We will recommend to continue antibiotic, can be switched to oral clindamycin and Cipro. Eosinophilia with possible allergic reaction to antibiotic versus leukopenia. Continue antibiotic for total of 10 days . Follow up with Dermatology as an outpatient. Hypothyroidism. We will follow the patient as dara mensah. We will hold off on punch biopsy as patient is improving. Thank you, Dr. Cruz, for consult. LUIS/HENNY Voice ID: [id number] Report ID: [id number]
--- NOTE | 2022-04-26 23:30 | P.DS ---
Admission Date: 04/14/22 Discharge Date: 04/16/22 Disposition: ROUTINE DISCHARGE Discharge Condition: GOOD Reason for Admission: Facial\right knee swelling\redness\rash Consultations: ID - Dr. Ram Brief History of Present Illness: 72-year-old female with a past medical history significant for GERD, hypothyroidism who presents with complaint of swelling\redness\\rash to her bilateral cheeks onset 3 days ago. Patient is a poor historian and unable to provide accurate history. Patient reported that she was seen in the hospital for a right knee cellulitis and was prescribed Bactrim 3 days ago. She was discharged home. Patient indicated that she did not notice any improvement in right knee swelling and redness. Patient indicated that she does not feel pain in the cheeks or right knee. Patient reported that her swelling and redness to her right knee is extending to her lower extremity on the right side. Patient denies any other signs or symptoms. Symptoms are aggravated or relieved by not fernando. Patient decided to present to the hospital due to worsening symptoms. Of note, patient reported that she was bit by an insect before the onset of symptoms Hospital Course: Problem List Right knee cellulitis Facial erythema/swelling Hypothyroidism, acquired s/p thyroidectomy h/o thyroid cancer s/p thyroidectomy GERD Patient presented with some worsening of her right knee erythema, itching, and involvement of her face despite treatment with bactrim. She was treated with IV Cefepime and Vancomycin and had improvement. Infectious Disease was consulted for concern for cellulitis that failed treatment. Given her improvement, no leukocytosis, and remaining afebrile, Dr. Ram recommended discharge home with doxycycline and clindamycin for 10 days. She was noted to have an increase in percentage of monocytes and eosinophils, however absolute number was within normal limits. Given the appearance and involvement of 2 areas. There is the possibility of this being due to Well's syndrome (Eosinophilic cellulitis). Recommend follow up with Dermatology. Follow up with PCP within 1 week. if no further improvement, to consider steroids. Vital Signs/Physical Exam: Temp Pulse Resp BP Pulse Ox 97.9 F 87 14 140/71 95 04/16/22 12:00 04/16/22 12:00 04/16/22 12:00 04/16/22 12:00 04/16/22 12:00 Physical Exam: Gen: NAD, AOx3 HEENT: normal conjunctiva, sclera anicteric CV: regular rate & rhythm, no edema Pulm: non-labored respirations, clear bilaterally MSK: no contractures, no tenderness, full ROM of R knee Skin: +mild malar rash with slight crusting of nasal bridge, +R knee: erythema, minimal induration superior to patella Neuro: normal speech, normal affect, moves all extremities Laboratory Data at Discharge: WBC 3.90 K/uL (4.3-10.9) L 04/16/22 05:45 Hgb 13.1 g/dL (12.0-15.0) 04/16/22 05:45 Hct 38.5 % (36.0-45.0) 04/16/22 05:45 Plt Count 166 K/uL (152-406) 04/16/22 05:45 Sodium 135 mmol/L (136-145) L 04/16/22 05:45 Potassium 3.8 mmol/L (3.5-5.1) D 04/16/22 05:45 BUN 6 mg/dL (7-18) L 04/16/22 05:45 Creatinine 0.73 mg/dL (0.55-1.02) 04/16/22 05:45 Glucose 114 mg/dL (74-106) H 04/16/22 05:45 Phosphorus 2.9 mg/dL (2.5-4.9) 04/14/22 15:28 Magnesium 2.3 mg/dL (1.6-2.4) 04/16/22 05:45 Total Bilirubin 1.2 mg/dL (0.2-1.0) H 04/16/22 05:45 AST 39 U/L (15-37) H 04/16/22 05:45 ALT 38 U/L (13-56) 04/16/22 05:45 Alkaline Phosphatase 67 U/L (45-117) 04/16/22 05:45 Home Medications: Famotidine [Pepcid*] 20 mg PO DAILY 02/10/18 Levothyroxine [Synthroid*] 125 mcg PO [id number] 02/10/18 Doxycycline Monohydrate 100 mg PO BID 10 Days #20 cap 04/16/22 clindamycin HCL [Clindamycin HCl] 300 mg PO QID 10 Days #40 cap 04/16/22 New Medications: clindamycin HCL [Clindamycin HCl] 300 mg PO QID 10 Days #40 cap Doxycycline Monohydrate 100 mg PO BID 10 Days #20 cap Physician Discharge Instructions: Patient presented with some worsening of her right knee erythema, itching, and involvement of her face despite treatment with bactrim. She was treated with IV Cefepime and Vancomycin and had improvement. Infectious Disease was consulted for concern for cellulitis that failed treatment. Given her improvement, no leukocytosis, and remaining afebrile, Dr. Ram recommended discharge home with doxycycline and clindamycin for 10 days. She was noted to have an increase in percentage of monocytes and eosinophils, however absolute number was within normal limits. Given the appearance and involvement of 2 areas. There is the possibility of this being due to Well's syndrome (Eosinophilic cellulitis). Recommend follow up with Dermatology. Follow up with PCP within 1 week. if no further improvement, to consider steroids. Followup: Unknown,U [Primary Care Provider] - Time spent managing pt's care (in minutes): 45
== END 2022-04-16 13:16 | disposition home or self-care (01) | DRG 603 ==
LOC: ER 11:13 → ERHOLD 14:38 → 2ND 16:11
PROVIDERS: ADMIT Hospitalist; ATTEND Hospitalist
DX: L98.3 Eosinophilic cellulitis [Wells] (principal); K21.9 Gastro-esophageal reflux disease without esophagitis; E89.0 Postprocedural hypothyroidism; L53.9 Erythematous condition, unspecified; N18.2 Chronic kidney disease, stage 2 (mild); L03.115 Cellulitis of right lower limb; R03.0 Elevated blood-pressure reading, without diagnosis of hypertension; Z88.5 Allergy status to narcotic agent; Z88.1 Allergy status to other antibiotic agents; Z88.8 Allergy status to other drugs, medicaments and biological substances; Z90.49 Acquired absence of other specified parts of digestive tract; Z91.040 Latex allergy status; Z91.018 Allergy to other foods; Z87.891 Personal history of nicotine dependence; Z79.890 Hormone replacement therapy; Z79.899 Other long term (current) drug therapy; Z85.850 Personal history of malignant neoplasm of thyroid; Z20.822 Contact with and (suspected) exposure to COVID-19
CPT/HCPCS: 36415; 80048; 80053; 80202; 81003; 83605; 83735; 83880; 84100; 84145; 85025; 86140; 87040; 87811; 96361; 96365; 99285; J0692; J1644; J2185; J3370; J7030; J7050

== ENCOUNTER 2022-08-26 10:24 | Emergency (ER) | payer OTHER ==
[2022-08-26 11:29] LABS: Absolute Lymphocytes (CBC) 1.2 K/uL (0.7-4.9); Hematocrit 41.3 % (36.0-45.0); Lymphocytes % 25.6 % (15.3-44.8); MCV 86.3 fL (80-100); RBC Red Blood Cell Count 4.78 M/uL (3.86-4.86)
[2022-08-26] MEDS ORDERED: DOXYCYCLINE 100 MG CAP PO ONE (11:29)
[2022-08-26] MEDS ORDERED: NA CHLORIDE 0.9% 500 ML ONE (11:29)
[2022-08-26] MEDS ORDERED: DIPHENHYDRAMINE 50 MG/ML VIAL ONE (11:29)
[2022-08-26] MEDS ORDERED: FAMOTIDINE 20 MG/2 ML VIAL IV ONE (11:30)
[2022-08-26 11:32] LABS: Protime INR 1.04
[2022-08-26 11:46] LABS: Albumin 3.8 g/dL (3.4-5.0); Bilirubin Total 1.2 mg/dL (0.2-1.0); Potassium 3.7 mEq/L (3.5-5.1); Protein, Total 7.4 g/dL (6.4-8.2)
--- NOTE | 2022-08-26 12:21 | ER ---
Nurse's Notes [facility] Name: Vaishnavi Jose Age: 72 yrs Sex: Female : 1950 Arrival Date: 08/26/2022 Time: 10:24 Bed 9 Private MD: Diagnosis: Insect bite (nonvenomous), unspecified lower leg;Cellulitis of other sites-BITES Presentation: 08/26 10:34 Chief complaint: Patient states: "I think something is biting me". Reports bite to arms aa5 and legs x 4 days. Coronavirus screen: At this time, the client does not indicate any symptoms associated with coronavirus-19. Ebola Screen: Patient denies travel to an Ebola-affected area in the 21 days before illness onset. Initial Sepsis Screen: Does the patient meet any 2 criteria? No. Patient's initial sepsis screen is negative. Does the patient have a suspected source of infection? No. Patient's initial sepsis screen is negative. Risk Assessment: Do you want to hurt yourself or someone else? Patient reports no desire to harm self or others. Onset of symptoms was August 2022. 10:34 Acuity: CLEVE 5 aa5 10:34 Method Of Arrival: Ambulatory aa5 11:09 Acuity: CLEVE 3 iw Triage Assessment: 13:08 General: Appears in no apparent distress. Behavior is calm, cooperative. iw Historical: - Allergies: 10:34 Codeine; aa5 10:34 Keflex; aa5 10:34 Kiwi (Actinidia Chinensis); aa5 10:34 Latex, Natural Rubber; aa5 - PMHx: 10:34 GERD; Thyroid problem; aa5 - PSHx: 10:34 Cholecystectomy; thyroid sx; aa5 Screenin:34 [facility] ED Fall Risk Assessment (Adult) History of falling in the last 3 months, iw including since admission. Abuse screen: Denies threats or abuse. Denies injuries from another. Nutritional screening: No deficits noted. Tuberculosis screening: No symptoms or risk factors identified. Assessment: 11:33 Reassessment: Patient appears in no apparent distress at this time. Patient and/or iw family updated on plan of care and expected duration. Pain level reassessed. Patient is alert, oriented x 3, equal unlabored respirations, skin warm/dry/pink. Vital Signs: 10:34 BP 152 / 85; Pulse 106; Resp 16 S; Temp 97.3(TE); Pulse Ox 97% on R/A; aa5 ED Course: 10:25 Patient arrived in ED. mr 10:34 Brett Rolle MD is Attending Physician. mami 10:34 Arm band placed on. aa5 10:35 Triage completed. aa5 11:10 Inserted saline lock: 22 gauge in right antecubital area, using aseptic technique. iw 11:20 Chelsey Davis, RN is Primary Nurse. iw 11:34 Patient has correct armband on for positive identification. iw 12:21 Danyel Lizama MD is Referral Physician. mami 13:07 No provider procedures requiring assistance completed. IV discontinued, intact, iw bleeding controlled, No redness/swelling at site. Pressure dressing applied. Administered Medications: 11:33 Drug: diphenhydrAMINE IVP 25 mg Route: IVP; Site: right antecubital; iw 12:00 Follow up: Response: No adverse reaction iw 11:33 Drug: Famotidine IVP 20 mg Route: IVP; Site: right antecubital; iw 12:00 Follow up: Response: No adverse reaction iw 11:33 Drug: Doxycycline PO 200 mg Route: PO; iw 12:00 Follow up: Response: No adverse reaction iw 11:33 Drug: NS 0.9% IV 500 ml Route: IV; Rate: bolus; Site: right antecubital; iw 12:00 Follow up: IV Status: Completed infusion iw Medication: 11:34 VIS not applicable for this client. iw Outcome: 12:21 Discharge ordered by . [facility] 13:07 Discharged to home ambulatory. iw 13:07 Condition: good 13:07 Discharge instructions given to patient, Instructed on discharge instructions, follow up and referral plans. Demonstrated understanding of instructions, follow-up care, medications, Prescriptions given X 3. 13:08 Patient left the ED. iw Signatures: Brett Rolle MD MD cha Rivera, Mary mr Chelsey Davis, RN ANAI Donna Mcrae RN RN aa5
--- NOTE | 2022-08-26 12:21 | EDPHYS ---
Physician Documentation [facility] Name: Vaishnavi Jose Age: 72 yrs Sex: Female : 1950 Arrival Date: 08/26/2022 Time: 10:24 Bed 9 Private MD: DELPHINE Physician Brett Rolle HPI: 08/26 11:14 This 72 yrs old Female presents to ER via Ambulatory with complaints of Skin mami Problem. 11:14 The patient or guardian complains of a bite, by an insect, injury. The complaints mami affect the right bicep, dorsal aspect of right forearm, right tricep and palmar aspect of right forearm. Context: The problem was sustained at an unknown location, resulted from unknown cause. Onset: The symptoms/episode began/occurred 3 day(s) ago. Modifying factors: The symptoms are alleviated by nothing. the symptoms are aggravated by nothing. The patient presents with a bite, by an insect, pain, that is acute. The complaints affect the right arm and right leg. Modifying factors: The symptoms are alleviated by nothing. the symptoms are aggravated by nothing. Severity of symptoms: At their worst the symptoms were mild in the emergency department the symptoms are unchanged. Historical: - Allergies: 10:34 Codeine; aa5 10:34 Keflex; aa5 10:34 Kiwi (Actinidia Chinensis); aa5 10:34 Latex, Natural Rubber; aa5 - PMHx: 10:34 GERD; Thyroid problem; aa5 - PSHx: 10:34 Cholecystectomy; thyroid sx; aa5 ROS: 11:18 Constitutional: Negative for fever, chills, and weight loss, Eyes: Negative for injury, mami pain, redness, and discharge, ENT: Negative for injury, pain, and discharge, Neck: Negative for injury, pain, and swelling, Cardiovascular: Negative for chest pain, palpitations, and edema, Respiratory: Negative for shortness of breath, cough, wheezing, and pleuritic chest pain, Abdomen/GI: Negative for abdominal pain, nausea, vomiting, diarrhea, and constipation, Back: Negative for injury and pain, : Negative for injury, bleeding, discharge, and swelling, Neuro: Negative for headache, weakness, numbness, tingling, and seizure, Psych: Negative for depression, anxiety, suicide ideation, homicidal ideation, and hallucinations, Allergy/Immunology: Negative for hives, rash, and allergies, Endocrine: Negative for neck swelling, polydipsia, polyuria, polyphagia, and marked weight changes, Hematologic/Lymphatic: Negative for swollen nodes, abnormal bleeding, and unusual bruising. 11:18 MS/extremity: Positive for bite, of the right arm and right leg. Exam: 11:18 Constitutional: This is a well developed, well nourished patient who is awake, alert, mami and in no acute distress. Head/Face: Normocephalic, atraumatic. Eyes: Pupils equal round and reactive to light, extra-ocular motions intact. Lids and lashes normal. Conjunctiva and sclera are non-icteric and not injected. Cornea within normal limits. Periorbital areas with no swelling, redness, or edema. ENT: Nares patent. No nasal discharge, no septal abnormalities noted. Tympanic membranes are normal and external auditory canals are clear. Oropharynx with no redness, swelling, or masses, exudates, or evidence of obstruction, uvula midline. Mucous membranes moist. Neck: Trachea midline, no thyromegaly or masses palpated, and no cervical lymphadenopathy. Supple, full range of motion without nuchal rigidity, or vertebral point tenderness. No Meningismus. Chest/axilla: Normal chest wall appearance and motion. Nontender with no deformity. No lesions are appreciated. Cardiovascular: Regular rate and rhythm with a normal S1 and S2. No gallops, murmurs, or rubs. Normal PMI, no JVD. No pulse deficits. Respiratory: Lungs have equal breath sounds bilaterally, clear to auscultation and percussion. No rales, rhonchi or wheezes noted. No increased work of breathing, no retractions or nasal flaring. Abdomen/GI: Soft, non-tender, with normal bowel sounds. No distension or tympany. No guarding or rebound. No evidence of tenderness throughout. Back: No spinal tenderness. No costovertebral tenderness. Full range of motion. Female : Normal external genitalia. MS/ Extremity: Pulses equal, no cyanosis. Neurovascular intact. Full, normal range of motion. Neuro: Awake and alert, GCS 15, oriented to person, place, time, and situation. Cranial nerves II-XII grossly intact. Motor strength 5/5 in all extremities. Sensory grossly intact. Cerebellar exam normal. Normal gait. Psych: Awake, alert, with orientation to person, place and time. Behavior, mood, and affect are within normal limits. 11:18 Skin: cellulitis, that is minimal, injury, bite(s), superficial. Vital Signs: 10:34 BP 152 / 85; Pulse 106; Resp 16 S; Temp 97.3(TE); Pulse Ox 97% on R/A; aa5 MDM: 10:34 Patient medically screened. [facility] 11:21 Differential diagnosis: contusion, abrasion. Data reviewed: vital signs, nurses notes. [facility] Consideration of Admission/Observation Escalation of care including admission/observation considered. I considered the following discharge prescriptions or medication management in the emergency department Medications were administered in the Emergency Department. See JUN. 11:23 Differential Diagnosis sepsis. Test considered but Not performed: EKG: NO EKG. [facility] Historians other than the Patient: NONE. Care significantly affected by the following chronic conditions: GERD, THYROID PROBLEM. 08/26 10:50 Order name: CBC with Diff; Complete Time: 12:20 [facility] 08/26 10:50 Order name: Comprehensive Metabolic Panel; Complete Time: 12:20 [facility] 08/26 10:50 Order name: PT-INR; Complete Time: 12:20 [facility] 08/26 10:50 Order name: IV Saline Lock; Complete Time: 11:20 [facility] Administered Medications: 11:33 Drug: diphenhydrAMINE IVP 25 mg Route: IVP; Site: right antecubital; iw 12:00 Follow up: Response: No adverse reaction iw 11:33 Drug: Famotidine IVP 20 mg Route: IVP; Site: right antecubital; iw 12:00 Follow up: Response: No adverse reaction iw 11:33 Drug: Doxycycline PO 200 mg Route: PO; iw 12:00 Follow up: Response: No adverse reaction iw 11:33 Drug: NS 0.9% IV 500 ml Route: IV; Rate: bolus; Site: right antecubital; iw 12:00 Follow up: IV Status: Completed infusion iw Disposition Summary: 08/26/22 12:21 Discharge Ordered Location: Home mami Problem: new mami Symptoms: have improved mami Condition: Stable mami Diagnosis - Insect bite (nonvenomous), unspecified lower leg mami - Cellulitis of other sites - BITES mami Followup: mami - With: Private Physician - When: 2 - 3 days - Reason: Recheck today's complaints, Continuance of care, Re-evaluation by your physician Followup: [facility] - With: - When: 2 - 3 days - Reason: Recheck today's complaints, Re-evaluation by your physician Discharge Instructions: - Discharge Summary Sheet mami - Insect Bite, Adult, [id number] mami - Insect Bite, Adult mami - Cellulitis, Adult mami - Cellulitis, Adult, [id number] [facility] Forms: - Medication Reconciliation Form [facility] - Thank You Letter [facility] - Antibiotic Education [facility] - Prescription Opioid Use [facility] Prescriptions: - Benadryl 25 mg Oral Capsule - take 1 capsule by ORAL route every 6 hours As needed; 30 tablet; Refills: 0, [facility] Product Selection Permitted - Pepcid 20 mg Oral Tablet - take 1 tablet by ORAL route every 12 hours for 21 days; 42 tablet; Refills: 0, [facility] Product Selection Permitted - Doxycycline Hyclate 100 mg Oral Tablet - take 1 tablet by ORAL route every 12 hours; 20 tablet; Refills: 0, Product [facility] Selection Permitted Signatures: Dispatcher [employer] Brett Meier MD MD cha Williams, Irene, RN RN Donna Tompkins RN RN aa5
[2022-08-26 13:44] VITALS: BP 152/85; TEMP 97.3; O2SAT 97
== END 2022-08-26 13:08 | disposition home or self-care (01) ==
LOC: ER 10:24
DX: L03.115 Cellulitis of right lower limb (principal); L03.113 Cellulitis of right upper limb; Z88.1 Allergy status to other antibiotic agents; Z88.5 Allergy status to narcotic agent; Z88.8 Allergy status to other drugs, medicaments and biological substances; Z91.018 Allergy to other foods; Z91.040 Latex allergy status; Z91.048 Other nonmedicinal substance allergy status
CPT/HCPCS: 85025; 36415; 85610; 80053; 96375; 96374; 99284; J1200; J7040

== ENCOUNTER 2022-08-30 12:03 | Emergency (ER) | payer OTHER ==
--- NOTE | 2022-08-30 13:21 | ER ---
Nurse's Notes [facility] Name: Vaishnavi Jose Age: 72 yrs Sex: Female : 1950 Arrival Date: 08/30/2022 Time: 12:03 Bed Waiting Private MD: Diagnosis: ED Course: 08/30 12:06 Patient arrived in ED. mr 12:19 Brett Rolel MD is Attending Physician. mami Administered Medications: No medications were administered Outcome: 13:21 Patient left the ED. aa5 Signatures: Brett Rolle MD MD cha Rivera, Mary mr Calderon, Audri RN RN aa5
== END 2022-08-30 13:21 | disposition left against medical advice (07) ==
LOC: ER 12:03
DX: Z02.9 Encounter for administrative examinations, unspecified (principal)

== ENCOUNTER 2022-08-31 07:50 | Emergency (ER) | payer OTHER ==
--- NOTE | 2022-08-31 09:27 | ER ---
Nurse's Notes [facility] Name: Vaishnavi Jose Age: 72 yrs Sex: Female : 1950 Arrival Date: 08/31/2022 Time: 07:50 Bed 14 Private MD: Diagnosis: Dermatitis, unspecified Presentation: 08/31 07:57 Chief complaint: Patient states: "I have a rash that it's itchy on my arms and last aa5 time I came here for that they said it was a skin infection and they admitted me to the hospital". Coronavirus screen: At this time, the client does not indicate any symptoms associated with coronavirus-19. Ebola Screen: Patient denies travel to an Ebola-affected area in the 21 days before illness onset. Initial Sepsis Screen: Does the patient meet any 2 criteria? HR > 90 bpm. Does the patient have a suspected source of infection? No. Patient's initial sepsis screen is negative. Risk Assessment: Do you want to hurt yourself or someone else? Patient reports no desire to harm self or others. Onset of symptoms was August 2022. 07:57 Method Of Arrival: Ambulatory aa5 07:57 Acuity: CLEVE 3 aa5 Historical: - Allergies: 07:57 Codeine; aa5 07:57 Keflex; aa5 07:57 Kiwi (Actinidia Chinensis); aa5 07:57 Latex, Natural Rubber; aa5 - PMHx: 07:57 GERD; Thyroid problem; aa5 - PSHx: 07:57 Cholecystectomy; thyroid sx; aa5 - Immunization history:: Adult Immunizations unknown. - Social history:: Smoking status: Patient/guardian denies using tobacco. Screenin:26 [facility] ED Fall Risk Assessment (Adult) History of falling in the last 3 months, ko1 including since admission No falls in past 3 months (0 pts) Confusion or Disorientation No (0 pts) Intoxicated or Sedated No (0 pts) Impaired Gait No (0 pts) Mobility Assist Device Used No (0 pt) Altered Elimination No (0 pt) Score/Fall Risk Level 0 - 2 = Low Risk Oriented to surroundings, Maintained a safe environment, Educated pt \\T\\ family on fall prevention, incl call for assistance when getting out of bed, Assessed \\T\\ reinforced patient's understanding of fall precautions, Provided non-skid footwear, Hourly rounding (assess needs \\T\\ fall precautionary measures) done, Used ambulatory aids as needed (educated on \\T\\ assisted with), Used gait belt as appropriate. Abuse screen: Denies threats or abuse. Denies injuries from another. Nutritional screening: No deficits noted. Tuberculosis screening: No symptoms or risk factors identified. Assessment: 08:26 General: Appears in no apparent distress. uncomfortable, Behavior is cooperative, ko1 appropriate for age, anxious. Pain: Denies pain. Neuro: No deficits noted. Cardiovascular: No deficits noted. Respiratory: No deficits noted. GI: No deficits noted. : No deficits noted. EENT: No deficits noted. Derm: Rash noted that is red, on left arm. Musculoskeletal: No deficits noted. Vital Signs: 07:57 BP 165 / 73; Pulse 95; Resp 16 S; Temp 97.8(TE); Pulse Ox 98% on R/A; Weight 63.5 kg aa5 (R); Height 5 ft. 2 in. (R); 08:33 BP 140 / 75; Pulse 92; Resp 16; Pulse Ox 98% ; ko1 10:04 BP 135 / 80; Pulse 88; Resp 16; Pulse Ox 98% ; ko1 07:57 Body Mass Index 25.61 (63.50 kg, 157.48 cm) aa5 ED Course: 07:52 Patient arrived in ED. am2 07:57 Arm band placed on. aa5 07:59 Triage completed. aa5 07:59 Tarun Davila DO is Attending Physician. ms3 08:17 Soco Hinton, RN is Primary Nurse. ko1 08:26 Patient has correct armband on for positive identification. Bed in low position. Call ko1 light in reach. Pulse ox on. NIBP on. 09:27 No provider procedures requiring assistance completed. Patient did not have IV access ko1 during this emergency room visit. Administered Medications: No medications were administered Medication: 08:26 VIS not applicable for this client. ko1 Outcome: 09:26 Discharge ordered by . ms3 10:04 Discharged to home ambulatory. ko1 10:04 Condition: stable 10:04 Discharge instructions given to patient, Instructed on discharge instructions, follow up and referral plans. medication usage, Demonstrated understanding of instructions, follow-up care, medications, Prescriptions given X 2. 10:05 Patient left the ED. ko1 Signatures: Donna Mcrae, ANAI RN aa5 Citlalli oDnnelly am2 Tarun Davila DO DO ms3 Soco Hinton RN RN ko1
--- NOTE | 2022-08-31 09:27 | EDPHYS ---
Physician Documentation [facility] Name: Vaishnavi Jose Age: 72 yrs Sex: Female : 1950 Arrival Date: 08/31/2022 Time: 07:50 Bed 14 Private MD: ED Physician Tarun Davila HPI: 08/31 10:51 This 72 yrs old Female presents to ER via Ambulatory with complaints of Arm Pain - ms3 redness. 10:51 72-year-old female with past medical history of GERD and hypothyroidism presents for ms3 bilateral arm erythema. Patient denies pain to the area. Patient denies fevers, chills, nausea, vomiting. Patient states she had similar symptoms in March.. Historical: - Allergies: 07:57 Codeine; aa5 07:57 Keflex; aa5 07:57 Kiwi (Actinidia Chinensis); aa5 07:57 Latex, Natural Rubber; aa5 - PMHx: 07:57 GERD; Thyroid problem; aa5 - PSHx: 07:57 Cholecystectomy; thyroid sx; aa5 - Immunization history:: Adult Immunizations unknown. - Social history:: Smoking status: Patient/guardian denies using tobacco. ROS: 10:51 Constitutional: Negative for fever, and chills. Neck: Negative for injury, pain, and ms3 swelling, Cardiovascular: Negative for chest pain, and palpitations. Respiratory: Negative for shortness of breath, cough, wheezing, and pleuritic chest pain, Abdomen/GI: Negative for abdominal pain, nausea, vomiting, diarrhea, and constipation. 10:51 Skin: Positive for rash. 10:51 All other systems are negative. Exam: 10:51 Constitutional: This is a well developed, well nourished patient who is awake, alert, ms3 and in no acute distress. Head/Face: Normocephalic, atraumatic. Neck: Trachea midline, no cervical lymphadenopathy. Supple, full range of motion without nuchal rigidity, or vertebral point tenderness. No Meningismus. Chest/axilla: Normal chest wall appearance and motion. Nontender with no deformity. Cardiovascular: Regular rate and rhythm with a normal S1 and S2. No gallops, murmurs, or rubs. Normal PMI, no JVD. No pulse deficits. Respiratory: Lungs have equal breath sounds bilaterally, clear to auscultation and percussion. No rales, rhonchi or wheezes noted. No increased work of breathing, no retractions or nasal flaring. Abdomen/GI: Soft, non-tender, with normal bowel sounds. No distension or tympany. No guarding or rebound. No evidence of tenderness throughout. MS/ Extremity: Pulses equal, no cyanosis. Neurovascular intact. Full, normal range of motion. 10:51 Skin: rash can be described as erythematous, on the Left and right arm. Vital Signs: 07:57 BP 165 / 73; Pulse 95; Resp 16 S; Temp 97.8(TE); Pulse Ox 98% on R/A; Weight 63.5 kg aa5 (R); Height 5 ft. 2 in. (R); 08:33 BP 140 / 75; Pulse 92; Resp 16; Pulse Ox 98% ; ko1 10:04 BP 135 / 80; Pulse 88; Resp 16; Pulse Ox 98% ; ko1 07:57 Body Mass Index 25.61 (63.50 kg, 157.48 cm) aa5 MDM: 08:07 Patient medically screened. ms3 10:51 Differential diagnosis: Dermatitis. Data reviewed: vital signs, nurses notes, and as a ms3 result, I will discharge patient. Counseling: I had a detailed discussion with the patient and/or guardian regarding: the historical points, exam findings, and any diagnostic results supporting the discharge/admit diagnosis, the need for outpatient follow up, to return to the emergency department if symptoms worsen or persist or if there are any questions or concerns that arise at home. ED course: Patient with recent emergency department visit and started on doxycycline. We will start steroids for possible dermatitis. Patient to follow-up with dermatology in 2 to 3 days. Patient understands agrees with plan. All questions were answered. Return precautions discussed include worsening symptoms, or any other concerns. Administered Medications: No medications were administered Disposition Summary: 08/31/22 09:26 Discharge Ordered Location: Home ms3 Condition: Stable ms3 Diagnosis - Dermatitis, unspecified ms3 Followup: ms3 - With: Private Physician - When: 2 - 3 days - Reason: Recheck today's complaints, Dermatology Discharge Instructions: - Discharge Summary Sheet ms3 - Rash, Adult, [id number] ms3 Forms: - Medication Reconciliation Form ms3 - Thank You Letter ms3 - Antibiotic Education ms3 - Prescription Opioid Use ms3 Prescriptions: - triamcinolone acetonide 0.1 % Topical cream - apply 1 application by TOPICAL route 4 times per day; 30 gram; Refills: 0, ms3 Product Selection Permitted - Prednisone 20 mg Oral Tablet - take 2 tablets by ORAL route once daily for 5 days; 10 tablet; Refills: 0, ms3 Product Selection Permitted Signatures: Donna Mcrae RN RN aa5 Tarun Davila DO DO ms3
[2022-08-31 10:19] VITALS: TEMP 97.8; O2SAT 98
[2022-08-31 10:22] VITALS: BP 135/80
== END 2022-08-31 10:05 | disposition home or self-care (01) ==
LOC: ER 07:50
DX: L30.9 Dermatitis, unspecified (principal); Z88.1 Allergy status to other antibiotic agents; Z88.5 Allergy status to narcotic agent; Z91.018 Allergy to other foods; Z91.040 Latex allergy status; Z91.048 Other nonmedicinal substance allergy status
CPT/HCPCS: 99283

== ENCOUNTER 2022-12-25 11:56 | Emergency (ER) | payer OTHER ==
--- NOTE | 2022-12-25 12:07 | ER ---
Nurse's Notes [facility] Name: Vaishnavi Jose Age: 72 yrs Sex: Female : 1950 Arrival Date: 12/25/2022 Time: 11:56 Bed IW1 Private MD: Diagnosis: Local infection of the skin and subcutaneous tissue, unspecified Presentation: 12/25 12:06 Chief complaint: Patient states: "2 days ago, i noticed a bite on my stomach. It's red mb9 now and itchy". Coronavirus screen: At this time, the client does not indicate any symptoms associated with coronavirus-19. Ebola Screen: No symptoms or risks identified at this time. Initial Sepsis Screen: Does the patient meet any 2 criteria? No. Patient's initial sepsis screen is negative. Does the patient have a suspected source of infection? No. Patient's initial sepsis screen is negative. Risk Assessment: Do you want to hurt yourself or someone else? Patient reports no desire to harm self or others. Onset of symptoms was December 25, 2022. 12:06 Method Of Arrival: Ambulatory mb9 12:06 Acuity: CLEVE 5 mb9 Triage Assessment: 12:07 General: Appears in no apparent distress. Behavior is calm, cooperative. Pain: Denies mb9 pain. Neuro: Nix Agitation-Sedation Scale (RASS): 0 - Alert and Calm Level of Consciousness is awake, alert, obeys commands, Oriented to person, place, time, situation, Appropriate for age. Cardiovascular: Patient's skin is warm and dry. Respiratory: Airway is patent Respiratory effort is even, unlabored, Respiratory pattern is regular, symmetrical. GI: No signs and/or symptoms were reported involving the gastrointestinal system. : No signs and/or symptoms were reported regarding the genitourinary system. Derm: Rash noted that is itchy, red, on abdomen. Musculoskeletal: Range of motion: intact in all extremities. Historical: - Allergies: 12:05 Codeine; mb9 12:05 Keflex; mb9 12:05 Kiwi (Actinidia Chinensis); mb9 12:05 Latex, Natural Rubber; mb9 - PMHx: 12:05 GERD; Thyroid problem; mb9 - PSHx: 12:05 Cholecystectomy; thyroid sx; mb9 - Immunization history:: Adult Immunizations up to date. - Social history:: Smoking status: Patient denies any tobacco usage or history of. Screenin:08 [facility] ED Fall Risk Assessment (Adult) History of falling in the last 3 months, mb9 including since admission No falls in past 3 months (0 pts) Confusion or Disorientation No (0 pts) Intoxicated or Sedated No (0 pts) Impaired Gait No (0 pts) Mobility Assist Device Used No (0 pt) Altered Elimination No (0 pt) Score/Fall Risk Level 0 - 2 = Low Risk Oriented to surroundings, Maintained a safe environment, Educated pt \\T\\ family on fall prevention, incl call for assistance when getting out of bed. Abuse screen: Denies threats or abuse. Nutritional screening: No deficits noted. Tuberculosis screening: No symptoms or risk factors identified. Assessment: 12:08 Reassessment: see triage assessment. mb9 Vital Signs: 12:06 BP 152 / 84; Pulse 98; Resp 18; Temp 98.5(O); Pulse Ox 100% on R/A; Weight 65.77 kg; mb9 Height 5 ft. 5 in. ; 12:06 Body Mass Index 24.13 (65.77 kg, 165.1 cm) mb9 ED Course: 11:58 Patient arrived in ED. im 12:04 [facility]C [facility] kb 12:04 Gavin Abernathy MD is Attending Physician. kb 12:05 Arm band placed on. mb9 12:07 Triage completed. mb9 12:08 Client placed on continuous cardiac and pulse oximetry monitoring. NIBP monitoring mb9 applied. 12:08 No provider procedures requiring assistance completed. Patient did not have IV access mb9 during this emergency room visit. 12:11 Germania Siegel, RN is Primary Nurse. mb9 Administered Medications: No medications were administered Outcome: 12:07 Discharge ordered by . kb 12:11 Discharged to home ambulatory. mb9 12:11 Condition: stable 12:11 Discharge instructions given to patient, Instructed on discharge instructions, follow up and referral plans. Demonstrated understanding of instructions, follow-up care, medications, Prescriptions given X 1. 12:11 Patient left the ED. mb9 Signatures: Vannesa Solis FNP-C FNP-Ckb Breneman, Mary Beth RN RN mb9 Odilia Bonilla im
--- NOTE | 2022-12-25 12:08 | EDPHYS ---
Physician Documentation [facility] Name: Vaishnavi Jose Age: 72 yrs Sex: Female : 1950 Arrival Date: 12/25/2022 Time: 11:56 Bed IW1 Private MD: ED Physician Gavin Abernathy HPI: 12/25 12:22 This 72 yrs old Female presents to ER via Ambulatory with complaints of bite in lower kb part of stomach. 12:22 the patient presents with a swollen area of the suprapubic area. Description: kb erythematous. Onset: The symptoms/episode began/occurred 2 day(s) ago. Possible cause(s): insect. Associated signs and symptoms: Pertinent positives: erythema. Modifying factors: the symptoms are alleviated by nothing, the symptoms are aggravated by nothing. Severity of symptoms: At their worst the symptoms were mild, in the emergency department the symptoms are unchanged. The patient has not experienced similar symptoms in the past. The patient has not recently seen a physician. Patient reports his baseline anxiety to the back of her legs and her abdomen 2 days ago. States bites on her legs are healing up fine but she noticed increased redness and itching to the bite on her abdomen so she became concerned.. Historical: - Allergies: 12:05 Codeine; mb9 12:05 Keflex; mb9 12:05 Kiwi (Actinidia Chinensis); mb9 12:05 Latex, Natural Rubber; mb9 - PMHx: 12:05 GERD; Thyroid problem; mb9 - PSHx: 12:05 Cholecystectomy; thyroid sx; mb9 - Immunization history:: Adult Immunizations up to date. - Social history:: Smoking status: Patient denies any tobacco usage or history of. ROS: 12:22 Constitutional: Negative for fever, chills, and weight loss. kb 12:22 Skin: Positive for erythema, of the suprapubic area. 12:22 All other systems are negative. Exam: 12:22 Constitutional: This is a well developed, well nourished patient who is awake, alert, kb and in no acute distress. Head/Face: Normocephalic, atraumatic. ENT: Moist Mucous membranes Cardiovascular: Regular rate and rhythm with a normal S1 and S2. No gallops, murmurs, or rubs. No pulse deficits. Respiratory: Respirations even and unlabored. No increased work of breathing. Talking in full sentences MS/ Extremity: Pulses equal, no cyanosis. Neurovascular intact. Full, normal range of motion. Neuro: Awake and alert, GCS 15, oriented to person, place, time, and situation. Moves all extremities. Normal gait. 12:22 Skin: Small area of redness to suprapubic area without any fluctuance, drainable abscess, cellulitis. Vital Signs: 12:06 BP 152 / 84; Pulse 98; Resp 18; Temp 98.5(O); Pulse Ox 100% on R/A; Weight 65.77 kg; mb9 Height 5 ft. 5 in. ; 12:06 Body Mass Index 24.13 (65.77 kg, 165.1 cm) mb9 MDM: 12:04 Patient medically screened. kb 12:22 Differential diagnosis: abscess, allergic reaction, cellulitis, insect bite. Data kb reviewed: vital signs, nurses notes. Counseling: I had a detailed discussion with the patient and/or guardian regarding the historical points, exam findings, and any diagnostic results supporting the discharge/admit diagnosis, the need for outpatient follow up, a family practitioner, to return to the emergency department if symptoms worsen or persist or if there are any questions or concerns that arise at home. Administered Medications: No medications were administered Disposition Summary: 12/25/22 12:07 Discharge Ordered Location: Home kb Condition: Stable kb Diagnosis - Local infection of the skin and subcutaneous tissue, unspecified kb Followup: kb - With: Emergency Department - When: As needed - Reason: Worsening of condition Followup: kb - With: Private Physician - When: 2 - 3 days - Reason: Recheck today's complaints, Continuance of care, Re-evaluation by your physician Discharge Instructions: - Discharge Summary Sheet kb - Insect Bite, Adult, [id number] kb - Skin Abscess, [id number] kb Forms: - Medication Reconciliation Form kb - Thank You Letter kb - Antibiotic Education kb - Prescription Opioid Use kb - Patient Portal Instructions kb - Leadership Thank You Letter kb Prescriptions: - Doxycycline Hyclate 100 mg Oral Tablet - take 1 tablet by ORAL route every 12 hours; 20 tablet; Refills: 0, Product kb Selection Permitted Signatures: Vannesa Solis FNP-C FNP-Ckb Breneman, Mary Beth RN RN mb9
[2022-12-25 12:17] VITALS: BP 152/84; TEMP 98.5; O2SAT 100
== END 2022-12-25 12:11 | disposition home or self-care (01) ==
LOC: ER 11:56
DX: L08.9 Local infection of the skin and subcutaneous tissue, unspecified (principal); Z88.1 Allergy status to other antibiotic agents; Z88.5 Allergy status to narcotic agent; Z91.018 Allergy to other foods; Z91.040 Latex allergy status
CPT/HCPCS: 99283

== ENCOUNTER 2024-01-02 05:54 | Observation (INO) | payer OTHER ==
[2023-12-29 11:55] LABS: Absolute Eosinophils 0.1 K/uL (0-0.5); Absolute Lymphocytes (CBC) 1.2 K/uL (0.7-4.9); Absolute Monocytes 0.5 K/uL (0.1-1.3); Absolute Neutrophil 3.4 K/uL (1.8-8.0); Basophils % 0.3 % (0-1.3); Eosinophils % 1.9 % (0-4.4); Hematocrit 42.4 % (36.0-45.0); Hemoglobin 14.2 g/dL (12.0-15.0); Lymphocytes % 23.8 % (15.3-44.8); MCH 29.9 pg (27.0-35.0); MCHC 33.4 g/dL (32.0-36.0); MCV 89.3 fL (80-100); MPV 9.3 fL (7.6-11.3); Monocytes % 9.1 % (3.3-12.3); Neutrophils % 64.9 % (41.7-73.7); Platelets 196 thou/uL (152-406); RBC Red Blood Cell Count 4.74 M/uL (3.86-4.86); Red Cell Distribution Width 13.6 % (12.1-15.2)
[2023-12-29 12:08] LABS: Anion Gap 10.4 mEq/L (5.0-15.0); Potassium 3.4 mEq/L (3.5-5.1)
--- NOTE | 2023-12-29 13:04 | RAD REPORT ---
EXAM DESCRIPTION: RAD - Chest Pa And Lat (2 Views) - 12/29/2023 12:44 pm CLINICAL HISTORY: pre-op. Hypertension COMPARISON: No comparisons TECHNIQUE: PA and lateral views of the chest were obtained. FINDINGS: The lungs are clear. Heart size is normal and central vasculature is within normal limits. No pleural effusion or pneumothorax seen. No acute bony finding noted. IMPRESSION: No acute cardiopulmonary process.
--- NOTE | 2023-12-29 16:22 | EKG ---
Test Date: 2023-12-29 Test Time: 12:12:41 Senior Telecommunications Engineer: JOHN MEASUREMENT RESULTS: Intervals: Rate: 103 CO: 174 QRSD: 84 QT: 334 QTc: 437 [place]: P: 63 CO: 174 QRS: 0 T: 72 INTERPRETIVE STATEMENTS: Sinus tachycardia with occasional premature ventricular complexes Possible Left atrial enlargement Anteroseptal infarct, age undetermined Abnormal ECG Compared to ECG 02/26/2020 11:16:52 Ventricular premature complex(es) now present Myocardial infarct finding now present Sinus rhythm no longer present Electronically Signed On 12-29-23 16:22:13 CDT by Isak Kohler
[2024-01-02] MEDS: Ringers Lactate 0 ML IV ONE ×2 (06:14→10:44)
[2024-01-02] MEDS: FENTANYL CITR 100 MCG/2 ML ONE (06:48)
[2024-01-02] MEDS: LIDOCAINE 2% MPF 5 ML VIAL ONE (06:48)
[2024-01-02] MEDS: EPINEPHRINE 1 MG/ML VIAL ONE (06:48)
[2024-01-02] MEDS: dexAMETHasone 4 MG/ML VIAL ONE (06:49)
[2024-01-02] MEDS: BUPIVACAINE 0.25% PF 30 ML VIAL ONE (06:49)
[2024-01-02] MEDS: MIDAZOLAM HCL 2 MG/2 ML INJ ONE (06:49)
[2024-01-02] MEDS: propofoL 200 MG/20 ML VIAL IV ONE (07:10)
[2024-01-02] MEDS: DEXMEDETOMIDINE HCL 200 MCG/2 ML VIAL ONE (08:13)
[2024-01-02] MEDS: MAGNESIUM SULFATE 1 gm IVPB 1 GM/100 ML BAG IV ONE (08:13)
[2024-01-02] MEDS: KETAMINE HCL IN 0.9 % NACL 50 MG/5 ML SYRINGE IV ONE (08:13)
[2024-01-02] MEDS: propofoL 1,000 MG/100 ML VIAL IV ONE ×2 (08:13→10:37)
[2024-01-02] MEDS: SUCCINYLCHOLINE 20 MG/ML (10 ML) IV ONE (08:14)
[2024-01-02] MEDS ORDERED: LIDOCAINE 2% MPF 5 ML VIAL ONE ×2 (08:24→09:39)
[2024-01-02] MEDS ORDERED: ONDANSETRON 4 MG/2 ML VIAL ONE (08:24)
--- NOTE | 2024-01-02 08:28 | RAD REPORT ---
EXAM DESCRIPTION: NM - Lymphoscintigraphy - 01/02/2024 8:16 am CLINICAL HISTORY: Bilateral sentinel lymph node biopsy COMPARISON: Chest Pa And Lat (2 Views) dated 12/29/2023 FINDINGS: 4 intradermal injections, periareolar at lateral and medial aspects of BILATERAL breast of 270 uCi (left breast) and 277 uCi (right breast) total of 547 uCi LYMPHOSEEK @ 6:41 am. Immediate im aging shows good radiopharmaceutical localization. There is vague areas of uptake seen in the breast tissue superior to the main injection sites. IMPRESSION: Technically successful bilateral lymphoscintigraphy injections as detailed.
[2024-01-02] MEDS: METHYLENE BLUE 1% 10 ML VIAL ONE (08:49)
[2024-01-02] MEDS: BUPIVACAINE 0.5% PF 10 ML VIAL ONE (08:50)
[2024-01-02] MEDS: CIPROFLOXACIN 400mg IV 400 MG/200 ML BAG IV ONE (09:26)
[2024-01-02] MEDS ORDERED: dexAMETHasone 4 MG/ML VIAL ONE (09:53)
[2024-01-02] MEDS ORDERED: FENTANYL CITR 100 MCG/2 ML ONE (10:01)
[2024-01-02] MEDS ORDERED: PROMETHAZINE INJ 25 MG/ML AMP IV PRN (11:25)
[2024-01-02] MEDS ORDERED: MEPERIDINE HCL 25 MG/ML SYR IV PRN (11:25)
[2024-01-02] MEDS ORDERED: propofoL 200 MG/20 ML VIAL IV ONE ×2 (11:51→12:24)
[2024-01-02] MEDS: NA CHLORIDE 0.9% 1,000 ML IV SCH (12:00)
[2024-01-02] MEDS ORDERED: GLYCOPYRROLATE 0.2 MG/ML SYR ONE (12:52)
[2024-01-02] MEDS ORDERED: EPHEDRINE SULF 50 MG/ML VIAL ONE (12:53)
--- NOTE | 2024-01-02 13:05 | P.BOP ---
Preoperative diagnosis: Bilateral breast cancer Postoperative diagnosis: same Primary procedure: 1. Left modified radical mastectomy. sentinel LN bx Secondary procedure: 2. Right mastectomy with sentinel LN biopsy Estimated blood loss: <75cc Specimen: breast and LN Findings: left LN positive for Cancer while Right LN are negative per Dr Porter Anesthesia: General (ln Posotive for can) Complications: None Drain(s): ОЛЕГ drain Transferred to: Recovery Room Condition: Good
--- OUTSIDE RECORDS SUMMARY | 2024-01-02 13:34 | XMS REPORT | Continuity of Care Document ---
Author Name Unknown Address [address] [place] [address] [facility] Address [address] [place] [address] 1 [address] [place] [address] Care Team Providers Care Financial Advisor Trainee Name Role Phone Unavailable Unavailable Unavailable Social History Smoking Status Start Date Stop Date Source Never Smoker [facility] Medications Ordered Medication Name Filled Medication Name Start Date Stop Date Current Medication? Ordering Clinician Indication Dosage Frequency Signature (SIG) Comments Components Source multivitami n multivitami n No multivitam in [facility] Nexium Nexium No Nexium [facility] Allergy Allergy No Allergy [facility] aspirin aspirin No aspirin [facility] levothyroxi ne 112 mcg tablet TAKE 1 TABLET BY MOUTH DAILY FOR SIX DAYS OF THE WEEK levothyroxi ne 112 mcg tablet TAKE 1 TABLET BY MOUTH DAILY FOR SIX DAYS OF THE WEEK No levothyrox ine 112 mcg tablet TAKE 1 TABLET BY MOUTH DAILY FOR SIX DAYS OF THE WEEK [facility] Vital Signs Vital Name Observation Time Observation Value Comments S ource BP Systolic 2023-10-20 00:00:00 178 mm[Hg] [facility] BMI (Body Mass Index) 2023-10-20 00:00:00 28.2 kg/m2 [facility] Body Weight 2023-10-20 00:00:00 154 [lb_av] [facility] BP Diastolic 2023-10-20 00:00:00 84 mm[Hg] [facility] Height 2023-10-20 00:00:00 62 [in_i] [facility] Body Weight 2023-10-05 00:00:00 154 [lb_av] [facility] Height 2023-10-05 00:00:00 62 [in_i] [facility] BMI (Body Mass Index) 2023-10-05 00:00:00 28.2 kg/m2 [facility] BP Diastolic 2023-10-05 00:00:00 111 mm[Hg] [facility] BP Systolic 2023-10-05 00:00:00 148 mm[Hg] [facility] Procedures Procedure Date / Time Performed Performing Clinic[facility] n Source MAMMO, diagnostic, digital, bilateral 2023-10-05 00:00:00 [facility] US, breast, bilateral 2023-10-05 00:00:00 [facility] Thyroidectomy [facility] Encounters Start Date/Time End Date/Time Encounter Type Admission Type Attending Clinicians Care Facility Care Department Encounter ID Source 2023-10-20 00:00:00 2023-10-20 00:00:00 MALIKA Sebastian: [address], [address], [place] [address] , Ph. [facility] - [email or web address]_Patricia mclaughlin Erving* [id number] [facility] 2023-10-05 00:00:00 2023-10-05 00:00:00 MALIKA Sebastian: [address], [address], [place] [address] , Ph. [facility] - [email or web address]_Mo lissette Erving* [id number] [facility]
[2024-01-02] MEDS: NALOXONE 0.4 MG/ML VIAL ONE (14:14)
[2024-01-02 14:29] LABS: Absolute Lymphocytes (CBC) 0.3 K/uL (0.7-4.9); Absolute Monocytes 0.1 K/uL (0.1-1.3); Absolute Neutrophil 8.9 K/uL (1.8-8.0); Basophils % 0.1 % (0-1.3); Hematocrit 38.7 % (36.0-45.0); Lymphocytes % 3.4 % (15.3-44.8); MCH 29.9 pg (27.0-35.0); MCHC 33.5 g/dL (32.0-36.0); MPV 10.1 fL (7.6-11.3); Monocytes % 0.7 % (3.3-12.3); Neutrophils % 95.8 % (41.7-73.7); Platelets 169 thou/uL (152-406); RBC Red Blood Cell Count 4.35 M/uL (3.86-4.86); Red Cell Distribution Width 13.2 % (12.1-15.2)
[2024-01-02 14:36] LABS: Blood Morphology Comment NOT SEEN (NOT SEEN); Platelet Estimate ADEQ; White Blood Cell Scan OK (OK)
[2024-01-02 14:50] LABS: Albumin 3.4 g/dL (3.4-5.0); Albumin/Globulin Ratio 1.1 (1.1-1.8); Anion Gap 14.6 mEq/L (5.0-15.0); Globulin 3.2 g/dL (2.3-3.5); Potassium 3.6 mEq/L (3.5-5.1); Protein, Total 6.6 g/dL (6.4-8.2)
[2024-01-02 16:15] VITALS: BMI 28.7
[2024-01-02] MEDS: PNEUMOCOCCAL VACCINE 0.5 ML IMVAC ONE (18:00)
[2024-01-02] MEDS: TRAMADOL 37.5mg/APAP 325mg PER TAB PO PRN (18:39)
[2024-01-02] MEDS: CIPROFLOXACIN 400mg IV 400 MG/200 ML BAG IV SCH (20:49)
[2024-01-02 23:29] VITALS: O2SAT 95
[2024-01-03 08:52] VITALS: TEMP 97
--- NOTE | 2024-01-03 12:35 | P.DS ---
Admission Date: 01/02/24 Discharge Date: 01/03/24 Disposition: ROUTINE DISCHARGE Discharge Condition: GOOD Brief History of Present Illness: s/p bilateral mastectomy for bilateral breast cancer Hospital Course: unremarkable Vital Signs/Physical Exam: Temp Pulse Resp BP Pulse Ox 97.0 F 79 16 128/62 96 01/03/24 08:00 01/03/24 08:00 01/03/24 08:00 01/03/24 08:00 01/03/24 08:00 General: Alert, In no apparent distress, Oriented x3, Cooperative HEENT: PERRLA, EOMI Neck: Supple Respiratory: Normal air movement Cardiovascular: No edema, Normal pulses Gastrointestinal: Soft and benign, No rebound, No guarding Musculoskeletal: No swelling, No contractures, No erythema, No tenderness, No warmth Integumentary: No rashes, No breakdown, No erythema, No warmth, No cyanosis, Other (intact surgical site) Neurological: Normal speech Laboratory Data at Discharge: WBC 9.30 thou/uL (4.3-10.9) 01/02/24 14:20 Hgb 13.0 g/dL (12.0-15.0) 01/02/24 14:20 Hct 38.7 % (36.0-45.0) 01/02/24 14:20 Plt Count 169 thou/uL (152-406) 01/02/24 14:20 Sodium 136 mEq/L (136-145) 01/02/24 14:20 Potassium 3.6 mEq/L (3.5-5.1) 01/02/24 14:20 BUN 10 mg/dL (7-18) 01/02/24 14:20 Creatinine 0.76 mg/dL (0.55-1.02) 01/02/24 14:20 Glucose 176 mg/dL (74-106) H 01/02/24 14:20 Total Bilirubin 2.0 mg/dL (0.2-1.0) H 01/02/24 14:20 AST 29 U/L (15-37) 01/02/24 14:20 ALT 29 U/L (13-56) 01/02/24 14:20 Alkaline Phosphatase 71 U/L (45-117) 01/02/24 14:20 Home Medications: Levothyroxine Sodium [Levothyroxine] 112 mcg PO SEECOM 12/29/23 Mv-Min/Iron/Folic/Calcium/Vitk [Women's Daily Formula Tablet] 2 tab PO DAILY 12/29/23 Omeprazole 20 mg PO DAILY 12/29/23 Physician Discharge Instructions: Keep dressing intact until tuesday doctor visit Record ОЛЕГ output q24h Diet: AHA Activity: No lifting more than 10 lbs Followup: Spenser Crow MD [Primary Care Provider] -
[2024-01-03 12:43] VITALS: BP 139/63
== END 2024-01-03 13:40 | disposition home or self-care (01) ==
LOC: OR 05:54 → 4TH 11:25
PROVIDERS: ADMIT Surgery; ATTEND Surgery
PROC: 07B90ZX Excision of Left Internal Mammary Lymphatic, Open Approach, Diagnostic (ICD-10-PCS; 2024-01-02)
PROC: 0HTT0ZZ Resection of Right Breast, Open Approach (ICD-10-PCS; 2024-01-02)
PROC: 07B80ZX Excision of Right Internal Mammary Lymphatic, Open Approach, Diagnostic (ICD-10-PCS; 2024-01-02)
PROC: 0HTU0ZZ Resection of Left Breast, Open Approach (ICD-10-PCS; principal; 2024-01-02 09:30)
DX: C50.812 Malignant neoplasm of overlapping sites of left female breast (principal); C50.811 Malignant neoplasm of overlapping sites of right female breast; C77.3 Secondary and unspecified malignant neoplasm of axilla and upper limb lymph nodes; Z17.0 Estrogen receptor positive status [ER+]
CPT/HCPCS: 93005; 85025 ×2; 80048; 36415 ×2; 88331; 88332; 88307 ×2; 88309; 88333; 80053; 71046; 94010; 78195; 19307; G0379; J2704 ×5; J3475; J1100 ×2; J2310; J2001 ×3; J3010 ×2; J0171; J2405; J0744 ×3; G0378 ×3; J7030; A9520; J2250; J7120

== ENCOUNTER → 2024-03-02 | Day surgery (SDC) | payer OTHER ==
[~2024-03-02] MED LIST: FAMOTIDINE 20 MG/2 ML VIAL IV ONE; FENTANYL CITR 100 MCG/2 ML ONE; NS 0.9% VIAL 20 ML ONE; propofoL 200 MG/20 ML VIAL IV ONE
[2024-03-02 11:42] LABS: Absolute Eosinophils 0.1 K/uL (0-0.5); Absolute Lymphocytes (CBC) 1.1 K/uL (0.7-4.9); Absolute Monocytes 0.3 K/uL (0.1-1.3); Basophils % 0.4 % (0-1.3); Eosinophils % 1.7 % (0-4.4); Hemoglobin 13.8 g/dL (12.0-15.0); Lymphocytes % 24.3 % (15.3-44.8); MCH 29.7 pg (27.0-35.0); MCHC 33.6 g/dL (32.0-36.0); MCV 88.4 fL (80-100); MPV 8.5 fL (7.6-11.3); Monocytes % 6.5 % (3.3-12.3); Neutrophils % 67.1 % (41.7-73.7); Platelets 205 thou/uL (152-406); RBC Red Blood Cell Count 4.64 M/uL (3.86-4.86); Red Cell Distribution Width 13.8 % (12.1-15.2)
[2024-03-02 12:04] LABS: Anion Gap 13.4 mEq/L (5.0-15.0); Potassium 4.4 mEq/L (3.5-5.1)
[2024-03-02] MEDS: Ringers Lactate 1,000 ML IV ONE (12:44)
[2024-03-02] MEDS: CIPROFLOXACIN 400mg IV 400 MG/200 ML BAG IV ONE (12:56)
[2024-03-02] MEDS: HEPARIN 5000 UNIT/ML 1 ML VIAL ONE (13:28)
--- NOTE | 2024-03-02 13:56 | P.BOP ---
Preoperative diagnosis: breast cancer Postoperative diagnosis: same Primary procedure: 1. Placement of portacath Secondary procedure: 2. Interpretation of fluoroscopy Estimated blood loss: <5cc Specimen: none Findings: as above Anesthesia: General Complications: None Implants: single lumen portacath Transferred to: Recovery Room Condition: Good
--- NOTE | 2024-03-02 14:30 | RAD REPORT ---
Procedure: Chest Single View HISTORY: Device placement. Central venous catheter placement. FINDINGS: The tip of a central venous catheter overlies the aortic knob presumably within the brachiocephalic v ein. No pneumothorax seen.
[2024-03-02 15:30] VITALS: O2SAT 99
[2024-03-02 15:31] VITALS: BP 145/80; TEMP 98
--- NOTE | 2024-03-02 19:47 | OP ---
Date of Procedure: 03/02/2024 Surgeon: Spenser Crow MD Preoperative Diagnosis: Breast cancer, bilateral, and need for chemotherapy. Postoperative Diagnosis: Breast cancer, bilateral, and need for chemotherapy. Procedures: 1.Placement of a Port-A-Cath in the left subclavian vein. 2.Interpretation of fluoroscopy. Estimated Blood Loss: Less than 5 cc. Specimen: None. Findings: As above. Anesthesia: General plus local. Complications: None. Implant: A single-lumen Port-A-Cath. Indications: This is a case of a 74-year-old patient in treatment of breast cancer, in need for chem otherapy. Port-A-Cath was requested. The benefits, alternatives, and risks of Port-A-Cath placement was fully explained to her and to the family, which include, but not limited to, infection, bleeding , damage to adjacent structures, anesthesia complication, hemothorax, pneumothorax, breaking of the c atheter, sepsis, endocarditis, DVTs, [place], and even . She also understands this may not relieve a ny symptoms. She might need more than one surgical intervention. We also explained to her the impor tance of maintenance of the Port-A-Cath, frequent flushing that should be arranged by the Cancer Cent er and she is not going to be using the Port-A-Cath. Also we explained as soon as the chemotherapy i s over and she does not need it anymore, we need her back to get the Port-A-Cath out. She understood , signed a consent. Description Of Procedure: Patient was brought to the operating room, placed in supine position. Ane sthesia was induced without complication. A time-out was called. Patient was placed in Trendelenbur g position after time-out. We injected local anesthetic followed by insertion of an 18-gauge needle in the left subclavian vein. Guidewire was passed through, guided under fluoroscopy into the superio r vena cava. An introducer was placed through under direct visualization. The guidewire was removed . Catheter was placed in into the superior vena cava and then tunneled underneath to a new incision created in the left upper chest with a pocket ready for the Port-A-Cath. Once we tunneled that evgeny ter, we cut it to proper size, connected to the Port-A-Cath using the client solutions manager's specifications. Excellent backflow and inflow. This secured in place with 3-0 chromic to the subcutaneous tissue an d then flushed with saline and then heparinized solution. The skin was closed with 3-0 chromic. Exc ellent backflow. Steri-Strip placed over the area. Patient tolerated the procedure well. Patient w as sent to Recovery in stable condition. DINESH/HENNY Voice ID: [id number] Report ID: [id number]
--- NOTE | 2024-03-02 19:53 | DS ---
Diagnosis: Breast cancer. Procedure: Placement of a Port-A-Cath under fluoroscopy. Disposition: Home. Activity: As tolerated. No heavy lifting. Condition: Stable. Discharge Instructions: Follow up in my office in 1 week. Call for appointment at [phone]. The discharge will be conditioned through the interpretation of the x-ray that will be ordered in the Recovery stat. KIMBERLI Voice ID: [id number] Report ID: [id number]
--- NOTE | 2024-03-02 23:54 | RAD REPORT ---
EXAM: Fluoroscopy less than one hour CLINICAL HISTORY: Portacatheter placement FINDINGS: 3 fluoroscopic spot images obtained. Fluoroscopy time 2 seconds A wire for a central venous catheter placement into the SVC. Procedure performed by
== END | disposition home or self-care (01) ==
LOC: OR 11:04
PROVIDERS: ATTEND Surgery
PROC: 0JH60WZ Insertion of Totally Implantable Vascular Access Device into Chest Subcutaneous Tissue and Fascia, Open Approach (ICD-10-PCS; principal; 2024-03-02 13:45)
DX: D05.11 Intraductal carcinoma in situ of right breast (principal); D05.12 Intraductal carcinoma in situ of left breast
CPT/HCPCS: 85025; 80048; 36415; 71045; 36561; J1644 ×2; A4216; J2704 ×2; J3010; J0744; J7120; C1788; 76000